=== PATIENT | male | born 1950 | race Caucasian/White ===

== ENCOUNTER 2019-10-28 18:32 | Observation (INO) | payer MEDICARE, SELFPAY ==
--- NOTE | ~2019-10-28 | CT_ITS ---
EXAMINATION: CT brain wo con DATE: 10/28/2019 19:10 INDICATION: Memory deficit TECHNIQUE: Computed tomography (CT) of the head was performed without intravenous contrast. The dose- length product was 681.00 mGy-cm. The mA was adjusted according to patient size. Iterative reconstruction technique was employed. COMPARISON: No prior studies for comparison. FINDINGS: No acute intracranial hemorrhage, infarction, mass or mass effect. No ventriculomegaly or m idline shift. Basilar cisterns are patent. Paranasal sinuses and mastoids are pneumatized. There are scattered mild periventricular and subcortical white matter changes, most likely related to small ves kaiser ischemic disease (microangiopathy). Midline sagittal images are unremarkable. IMPRESSION: 1. No acute intracranial abnormality. 2: Chronic age-related findings. Reviewed, dictated and finalized at location A.
--- NOTE | ~2019-10-28 | MR_ITS ---
EXAMINATION: MR brain/brain stem wo/w con DATE: 10/29/2019 13:02 INDICATION: Acute encephalopathy TECHNIQUE: Magnetic resonance imaging (MRI) of the brain and brainstem was performed without and with intravenous contrast. Sequences included sagittal and axial T1-weighted SE, axial diffusion-weighted FS EPI ASSET, axial T2*-weighted GRE, axial T2-weighted FLAIR Propeller, and axial T2-weighted Prope ller. Postcontrast axial and coronal T1-weighted SE was obtained. Apparent diffusion coefficient (ADC ) maps were created. COMPARISON: 09/03/2018 CONTRAST: Multihance, 17 cc FINDINGS: There are no areas of restricted diffusion to suggest acute infarction. There is no acute h emorrhage seen on the T2*, a hemosiderin sensitive sequence. The ventricles are normal in size. There are no extra-axial collections. There are scattered areas of nonspecific increased T2-weighted signa l intensity in the cerebral white matter. Flow voids are seen in the cerebral arteries on the T2-weig hted sequences consistent with their expected patency. Visualized orbits and soft tissues are unremar kable. There are no areas of abnormal enhancement on the post contrast images. IMPRESSION: 1. No acute intracranial abnormality. 2. Age related changes. Reviewed, dictated and finalized at location A.
[2019-10-28 18:43] VITALS: BP 187/99; PULSE 87; RESP 16; TEMP 37; O2SAT 98
--- NOTE | 2019-10-28 18:46 | ED.NEUROSD ---
HPI - Neuro Symptoms/Deficit General Chief Complaint: Neuro Symptoms/Deficit Stated Complaint: confusion Time Seen by Provider: 10/28/19 18:43 Source: patient and RN notes reviewed Mode of arrival: ambulatory Limitations: altered mental status History of Present Illness HPI Narrative: A 69 y/o male presents to the ED with increased confusion beginning 1 hour ago after he awoke from a nap. His states that they had sexual intercourse this afternoon and then took a nap, but that when the pt woke up he began to act confused. He reports associated anxiety and notes that he is on a 81mg Aspirin. He denies any TAYLOR, visual changes, blurred vision, slurred speech, focal weakness, numbness, CP, SOB, ABD pain, N/V/D, fevers, chills, sweats, dysuria, or urinary frequency. Onset (ago): hour(s) (1) Time: 17:45 Timing confirmed by: spouse Location: other (confusion) Context: other (awoke from a nap with) On Anticoagulants: Yes (81mg Aspirin) Associated symptoms: other (anxiety) Treatments Prior to Arrival: none Related Data Home Medications Medication Instructions Recorded Confirmed aspirin [Adult Low Dose Aspirin] 81 mg PO DAILY 10/28/19 10/29/19 atorvastatin 20 mg PO DAILY 10/28/19 10/29/19 flecainide 150 mg PO Q12H 10/28/19 10/29/19 metoprolol tartrate 50 mg PO Q12H 10/28/19 10/28/19 [id number] acid-lutein [Adult 1 tablet PO DAILY 10/28/19 10/29/19 Multivitamin (w-lutein)] Allergies Allergy/AdvReac Type Severity Reaction Status Date / Time ampicillin Allergy Intermediate BLEEDING Verified 10/28/19 18:46 AND DIARRHEA amoxicillin Allergy Unknown Unknown Verified 10/28/19 18:46 Penicillins Allergy Unknown Unknown Verified 10/28/19 18:46 Review of Systems Review of Systems: All systems reviewed & are unremarkable except as noted in HPI and below Constitutional: Constitutional: Denies chills, Denies fever(s) and Denies other (sweats) Eyes: Eyes: Denies blurry vision and Denies change in vision Cardiovascular: Cardiovascular: Denies chest pain Respiratory: Respiratory: Denies dyspnea Gastrointestinal: Gastrointestinal: Denies abdominal pain, Denies diarrhea, Denies nausea and Denies vomiting Genitourinary: Genitourinary: Denies dysuria and Denies urinary frequency Neurologic: Denies Abnormal speech present, Reports confusion, Denies headache(s), Denies focal weakness and Denies numbness Psychiatric: Psychiatric: Reports anxiety PMFSH Past Medical History Medical History A-fib Chronic back pain H/O: HTN (hypertension) HLD (hyperlipidemia) Surgical History Surgical History Hx of arthroscopic knee surgery Family History Family History (Updated 10/28/19 @ 23:50 by Aixa Mark RN) Mother Alzheimer disease Father Lymphoma, non-Hodgkin's Social History Social History Smoking status: Never smoker Alcohol intake: never Substance use: never Gender identity (if verbalized by the patient): Male Spiritual care concerns: No Comments PCP: Dr. Fox. Exam Const: General: cooperative, no acute distress and alert Nutritional Appearance: well nourished HENMT: Mouth: Yes lip normal and Yes moist mucous membranes Resp: Effort & Inspection: normal respiratory effort Auscultation: clear to auscultation bilaterally Cardio: Rate: regular rate Rhythm: regular rhythm GI: GI Palp: Yes Soft to palpation and No Tenderness to palpation present (GI) Auscultation: normal bowel sounds Skin: General skin exam: normal color Neuro: General: Normal light touch and pain sensation, no focal motor deficits, CN's II-XI intact bilaterally and confusion Cognition (Neuro): normal cognition Speech: normal speech Motor exam (neuro): 5/5 motor strength present throughout Sensory Exam: normal sensation Coordination: [id number] test
--- NOTE | 2019-10-28 18:55 | ECG_ITS ---
Measurements Intervals Wister Rate: 87 P: 80 CO: 188 QRS: 9 QRSD: 125 T: 24 QT: 372 QTc: 450 Interpretive Statements SINUS RHYTHM INTRAVENTRICULAR CONDUCTION DELAY POSSIBLE LEFT VENTRICULAR HYPERTROPHY BORDERLINE ECG Electronically Signed On 10-29-2019 7:53:36 CDT by Prieto Pang D.O.
[2019-10-28 19:06] VITALS: BP 187/99; PULSE 87; RESP 16; O2SAT 98
[2019-10-28 19:09] LABS: Basophils Absolute Auto 0.1 K/mm3 (0.0-0.1); Basophils Percent Auto 0.7 % (0.2-1.2); Eosinophils Absolute Auto 0.1 K/mm3 (0-0.3); Eosinophils Percent Auto 1.7 % (0-4.4); Hematocrit 45.5 % (42.0-52.0); Hemoglobin 15.6 g/dL (14.0-18.0); Immature Granulocyte Absolute 0.03 K/mm3 (0.00-0.031); Immature Granulocyte Percent A 0.4 % (0-0.5); Lymphocytes Absolute Auto 2.48 K/mm3 (0.9-3.2); Lymphocytes Percent Auto 34.8 % (18.3-44.2); Mean Corpuscular HGB Conc 34.3 g/dl (32-36); Mean Corpuscular Hemoglobin 30.1 pg (26-34); Mean Corpuscular Volume 87.8 fl (80-100); Mean Platelet Volume 10.4 fl (7.4-10.4); Monocytes Absolute Auto 0.9 K/mm3 (0.1-0.6); Monocytes Percent Auto 11.9 % (2.6-8.5); Neutrophils Absolute Auto 3.6 K/mm3 (1.3-6.7); Neutrophils Percent Auto 50.5 % (45.5-73.1); Platelet Count Result 226 k/mm3 (150-375); Red Blood Count 5.18 M/mm3 (4.6-6.20); Red Cell Distribution Width 12.7 % (11.5-14.5); White Blood Count 7.1 K/mm3 (4.5-10.0)
[2019-10-28 19:18] LABS: Partial Thromboplastin Time 26.8 SECONDS (22.3-36.8); Prothrombin Time 12.4 Seconds (11.1-14.7)
[2019-10-28 19:21] LABS: Alanine Aminotransferase 50 U/L (4-50); Albumin Level 4.5 g/dL (3.5-5.1); Alkaline Phosphatase 88 U/L (38-126); Aspartate Amino Transferase 43 U/L (17-59); Blood Urea Nitrogen 22 mg/dL (9-20); Calcium 9.2 mg/dL (8.4-10.2); Carbon Dioxide 24 mmol/L (22-30); Chloride 103 mmol/L (98-107); Estimated Glomerular Filt Rate > 60; Glucose 113 mg/dL (75-110); Potassium 4.2 mmol/L (3.4-5.0); Sodium 137 mmol/L (137-145)
[2019-10-28 19:36] LABS: Add Urine Microscopic? YES; Appearance Urine Clear (Clear); Bilirubin Urine Negative (Negative); Blood Urine 1+ (Negative); Color Urine Straw (Yellow); Glucose Urine UA Negative (Negative); Ketones Urine Negative (Negative); Leukocyte Esterase Ur Negative LEU/UL (Negative); Mucus Urine Rare /lpf; Nitrate Urine Negative (Negative); Protein Urine Negative (Negative); Specific Grav Ur 1.014 (1.001-1.035); Urobilinogen Urine Negative mg/dL (<2.0); WBC Urine 0-3 /hpf
--- NOTE | 2019-10-28 22:01 | PM.IMHP ---
H&P: HPI History of Present Illness Chief complaint: ALTERED MENTAL STATUS Narrative: This is a 69 year old male with known history of paroxysmal atrial fibrillation on Flecainaide, HTN, and hyperlipidemia who presented to the hospital with a complaint of acute altered mental status. The patient was last known to be at his baseline around 4 pm this afternoon. Apparently he had sexual intercourse with his in the afternoon and took a nap. Upon waking up he was very confused and began pacing around the room. His reported that the patient kept asking the same questions over and over again. He was brought to the hospital and evaluated. CT brain was unremarkable for any acute pathology. The patient denies any focal neurological symptoms. Apprently he did suffer a fall recently but did not have any head trauma. His family denies that the patient had any seizure like activity, passing out, head trauma, nausea, vomiting, slurred speech, blurry vision, double vision, loss of urine, tongue biting, numbness, tingling, facial droop or focal weakness. The patient has no previous history of strokes. His mother was known to have Alzheimer's disease in her 70s. On my encounter with the patient tonight he is clearly confused and quickly forgets what I am talking to him about. His intermediate memory seems intact. He denies any other symptoms at this time including fevers, chills, dysuria, hematuria, neck stiffness, headache, cough, chest pain, shortness of breath, palpitations, abdominal pain, diarrhea, rectal bleeding, LE swelling or pain. No other complaints. We have been asked to admit the patient to the hospital for further care. Review of Systems Review of Systems: All systems reviewed & are unremarkable except as noted in HPI and below PMFSH Past Medical History Medical History A-fib Chronic back pain H/O: HTN (hypertension) HLD (hyperlipidemia) Surgical History Surgical History Hx of arthroscopic knee surgery Family History Family History (Updated 10/28/19 @ 23:17 by Shiraz Goyal MD) Mother Alzheimer disease Social History Social History Smoking status: Never smoker Alcohol intake: current Meds Home Medications and Allergies Home Medications Medication Instructions Recorded Confirmed Type esomeprazole magnesium 40 mg 40 mg PO DAILY #90 cap 10/07/19 Rx capsule,delayed release aspirin [Adult Low Dose Aspirin] 81 mg PO DAILY 10/28/19 History atorvastatin 20 mg PO DAILY 10/28/19 History flecainide 150 mg PO Q12H 10/28/19 History metoprolol tartrate 50 mg PO Q12H 10/28/19 10/28/19 History [id number] acid-lutein [Adult tablet PO 10/28/19 History Multivitamin (w-lutein)] Allergies Allergy/AdvReac Type Severity Reaction Status Date / Time ampicillin Allergy Intermediate BLEEDING Verified 10/28/19 18:46 AND DIARRHEA amoxicillin Allergy Unknown Unknown Verified 10/28/19 18:46 Penicillins Allergy Unknown Unknown Verified 10/28/19 18:46 Vital Signs Vital Signs - 24 hr 10/28/19 18:43 10/28/19 19:06 Temperature 37.0 C Pulse Rate 87 87 Respiratory Rate 16 16 Blood Pressure 187/99 H 187/99 H Pulse Oximetry 98 98 Exam Const: General: cooperative, alert, awake, anxious and confusion Nutritional Appearance: well nourished Orientation/consciousness: patient oriented x3 HENMT: Head: normal to inspection General nose exam: Normal external nose present Face and sinus: normal facial exam Mouth: Yes Normal oral and palatal mucosa present and Yes oropharynx normal Eyes: Pupils: Equal, round and reactive pupils present EOM: EOMs intact bilaterally Neck: Neck: supple and no JVD Thyroid: thyroid normal Lymphatic: lymphadenopathy not noted Resp: Effort & Inspection: normal respiratory effort Auscultation: clear to
[2019-10-28 22:07] LABS: Glucose Point of Care 120 (65-105)
--- NOTE | 2019-10-28 23:19 | ADMGEN ---
This patient, Shiraz Parker, was admitted to Medical Room 245-. Patient/family oriented to hospital policies and general routines including ID bracelet, bed and alarms, visiting hours, pain management, procedures, bathroom and other care routines, personal items, smoking policy, room service/diet, and visiting hours. Valuables list has been completed. Information on how to activate the Rapid Response Team has been discussed. Patient/Family are encouraged to report perceived risks to care and to ask questions if they do not understand what they are told or what they should do.
[2019-10-28 23:29] VITALS: BMI 26.4
[2019-10-28 23:30] VITALS: BP 171/83; PULSE 94; RESP 20; TEMP 37.3; O2SAT 97
[2019-10-28 23:48] LABS: Ammonia < 9 umol/L (9-30)
[2019-10-28] MEDS: SODIUM CHLORIDE 0.9% IV 1,000 ML 100 ML IV CONT (23:52)
[2019-10-29] VITALS (14 sets, daily range): BP systolic 151–162; BP diastolic 75–104; PULSE 75–100; RESP 16–18; TEMP 36.2–37.2; O2SAT 96–97
[2019-10-29] MEDS: ACETAMINOPHEN 325 MG TABLET 650 MG PO ×3 (00:55→21:06)
[2019-10-29 01:47] LABS: Magnesium 1.9 mg/dL (1.6-2.3); Phosphorus 3.3 mg/dL (2.5-4.5)
[2019-10-29 02:14] LABS: Amphetamine Screen Urine Negative (Negative); Barbiturate Screen Urine Negative (Negative); Benzodiazepines Screen Urine Negative (Negative); Cannabinoid Screen Urine Negative (Negative); Cocaine Screen Urine Negative (Negative); Methadone Screen Urine Negative (Negative); Opiate Screen Urine Negative (Negative); Phencyclidine Screen Urine Negative (Negative)
[2019-10-29 02:57] LABS: Folic Acid 13.5 ng/mL (2.76->20)
[2019-10-29 05:43] LABS: Basophils Percent Auto 0.3 % (0.2-1.2); Eosinophils Absolute Auto 0.1 K/mm3 (0-0.3); Eosinophils Percent Auto 0.7 % (0-4.4); Hematocrit 42.8 % (42.0-52.0); Hemoglobin 14.7 g/dL (14.0-18.0); Immature Granulocyte Absolute 0.04 K/mm3 (0.00-0.031); Immature Granulocyte Percent A 0.5 % (0-0.5); Lymphocytes Absolute Auto 1.91 K/mm3 (0.9-3.2); Lymphocytes Percent Auto 22.1 % (18.3-44.2); Mean Corpuscular HGB Conc 34.3 g/dl (32-36); Mean Corpuscular Hemoglobin 30.3 pg (26-34); Mean Corpuscular Volume 88.2 fl (80-100); Mean Platelet Volume 10.2 fl (7.4-10.4); Monocytes Absolute Auto 0.9 K/mm3 (0.1-0.6); Monocytes Percent Auto 10.4 % (2.6-8.5); Neutrophils Absolute Auto 5.7 K/mm3 (1.3-6.7); Platelet Count Result 199 k/mm3 (150-375); Red Blood Count 4.85 M/mm3 (4.6-6.20); Red Cell Distribution Width 12.9 % (11.5-14.5); White Blood Count 8.6 K/mm3 (4.5-10.0)
[2019-10-29 05:44] LABS: Hemoglobin A1C 5.9 % (<5.7)
[2019-10-29 05:54] LABS: Blood Urea Nitrogen 16 mg/dL (9-20); Carbon Dioxide 25 mmol/L (22-30); Chloride 106 mmol/L (98-107); Cholesterol 175 mg/dL (0-200); Estimated CRCL calculation 81 ml/min; Estimated Glomerular Filt Rate > 60; Glucose 141 mg/dL (75-110); HDL Direct 35 mg/dL; Potassium 4.1 mmol/L (3.4-5.0); Sodium 136 mmol/L (137-145); Triglycerides 327 mg/dL (<150)
[2019-10-29 06:05] LABS: LDL Cholesterol Direct 90 mg/dL
[2019-10-29] MEDS: ASPIRIN 81 MG ENTERIC TABLET PO (08:26)
[2019-10-29] MEDS: SODIUM CHLORIDE 0.9% IV 1,000 ML 100 ML IV CONT (10:00)
[2019-10-29] MEDS: LORAZEPAM INJ 2 MG/ML VIAL 0.5 MG IV PUSH (11:57)
--- NOTE | 2019-10-29 15:21 | CONS_ITS ---
DATE OF CONSULTATION: 10/28/2019 HISTORY OF PRESENT ILLNESS: 69 years old right-handed male has been admitted to [facility] through the emergency room for the complaint of acute changes in the mental status. The patient reportedly last known to be at baseline around 4 p.m. in the afternoon, he went to sleep. Upon waking, he was very confused and began pacing around the room. His reported he kept asking the same question over and over again. He was brought to the hospital and evaluation was done. CT of the brain was unremarkable for any acute pathology. He gave no history of any other neurological deficit and gave no history of trauma. No history of seizure. He has no previous history of stroke. His mom used to be suffering from Alzheimer disease, but initial encounter, the patient was definitely confused and quickly forgot what he was told, though his long-term memory was intact. He has ongoing history of 1. Paroxysmal atrial fibrillation for which he is taking flecainide. 2. Hypertension. 3. Hyperlipidemia. 4. Chronic back pain. 5. History of arthroscopic knee surgery. As mentioned above, mom had the Alzheimer disease. The patient himself was never smoker and drinks alcohol occasionally. At the time of admission to the hospital, he was taking esomeprazole 40 mg daily, aspirin 81 mg daily, atorvastatin 20 mg daily, flecainide 150 mg q.12, metoprolol 50 mg q.12h, and multivitamin, folic acid, lutein 1 tablet daily. ALLERGIES: HE IS REPORTEDLY ALLERGIC TO AMPICILLIN AND PENICILLIN. PHYSICAL EXAMINATION: GENERAL AND VITAL SIGNS: Evaluation up until now revealed him to be afebrile with respiration of 15 per minute, blood pressure 187/99, and pulse ox of 98%. HEAD: Normocephalic with no cranial bruit. EAR, NOSE, THROAT: Normal. NECK: Supple with no cervical bruit. No thyromegaly. No lymphadenopathy. HEART: Regular. LUNGS: Clear. ABDOMEN: Soft. NEUROLOGICAL: He is awake, alert, oriented x3. Speech not dysphasic, not dysarthric, not dysphonic. Pupils round, regular. Harris of vision full. Extraocular movements full. Face symmetrical. Tongue midline. Motor examination revealed him to have normal strength and tone. Reflexes symmetrical. Plantars downgoing. There is no evidence of sensory or cerebellar deficit. LABORATORY DATA: Evaluation up until now revealed him to have CBC with WBC 7.1, hemoglobin 15.6, platelet count 226. Normal basic metabolic panel. AST 43, ALT 50, alkaline phos 88, albumin 4.5 with total bilirubin of 1.0. UA negative. CT scan of the neck, head negative, except the chronic age-related finding. After thorough discussion made with him further concerns were raised about the possibility of 1. Early dementia. 2. Anxiety with very subtle depression. 3. Possibility of the stroke and TIA. All the pros and cons were discussed with him, with his , as well as the daughter who is the nurse. At this stage, I would like to start him on citalopram 10 mg daily, in addition we will wait for the MRI to make sure that he did not have any subcortical stroke and we are dealing only with the TIA versus the early Alzheimer or anxiety stress. All the pros and cons have been discussed. MATTHEW DANIELS M.D. PACKAGE DYE STAND LOADER PACKAGE DYE STAND LOADER D Daphnie MT: Ton
[2019-10-29] MEDS: CITALOPRAM HYDROBROMIDE 10 MG TABLET PO (15:45)
--- NOTE | 2019-10-29 17:28 | PM.IMPN ---
Progress Note: A&P Assessment and Plan (1) Acute alteration in mental status: Code(s): R41.82 - Altered mental status, unspecified Status: Acute Assessment and Plan: Appears may be consistent with transient global amnesia precipitated by significant stress and anxiety vs. TIA. Early dementia is also possible. Appreciate neurology consultation. Electrolytes, TSH, ammonia, vitamin B12 and folate levels are all within normal limits. Urine drug screen negative. Urinalysis is grossly unremarkable. EKG and telemetry in normal sinus rhythm. CT brain with no acute intracranial abnormality. MRI brain was obtained today, waiting on final report to rule out CVA. Echocardiogram noted below, no interatrial shunting suspected. Continue home statin therapy and ASA. (2) Paroxysmal atrial fibrillation: Code(s): I48.0 - Paroxysmal atrial fibrillation Status: Chronic Assessment and Plan: Currently in normal sinus rhythm. Continue home flecainide and metoprolol. He follows with Dr. Dukes at [facility] as well as an academic program specialist. (3) Hypertension: Qualifiers: Hypertension type: essential hypertension Qualified Code(s): I10 - Essential (primary) hypertension Code(s): I10 - Essential (primary) hypertension Status: Chronic Assessment and Plan: BPs elevated, patient admits to significant white coat anxiety and many other stressors at home. Allowed for permissive hypertension initially. PRN hydralazine available as needed in addition to his home antihypertensive regimen. (4) HLD (hyperlipidemia): Qualifiers: Hyperlipidemia type: unspecified Qualified Code(s): E78.5 - Hyperlipidemia, unspecified Code(s): E78.5 - Hyperlipidemia, unspecified Status: Chronic Assessment and Plan: Continue home statin therapy. Triglycerides are elevated. Follow-up with PCP. (5) GERD (gastroesophageal reflux disease): Qualifiers: Esophagitis presence: without esophagitis Qualified Code(s): K21.9 - Gastro-esophageal reflux disease without esophagitis Code(s): K21.9 - Gastro-esophageal reflux disease without esophagitis Status: Chronic Assessment and Plan: Continue PPI therapy. (6) Anxiety: Code(s): F41.9 - Anxiety disorder, unspecified Status: Chronic Assessment and Plan: Patient exhibits significant anxiety. He admits he is very stressed about things going on at home and also admits he is very worried about his health. Dr Bishop started Celexa. Subjective Date/time seen: 10/29/19 1130 Interval history: Mr. Parker is a 69yo M admitted for evaluation of altered mental status. He is quite anxious and has significant stress in his home life. He reports feeling better this morning than when he came in. He is very concerned for his health and all of his test results were explained to him in detail which helped ease him. He denies any chest pain, shortness of breath, dizziness or calf tenderness. He has tolerated some oral intake without nausea or vomiting. Review of Systems Review of Systems: Narrative: Twelve systems were reviewed with pertinent positives and negatives as per HPI. Exam Narrative: Exam Narrative: General: Male resting supine in bed in no acute distress. Anxious. HEENT: Normocephalic, EOMI, oral mucosa moist. Cardiovascular: Rate and rhythm are regular. Telemetry review shows normal sinus rhythm rate 78 at time of my exam. Respiratory: Lungs clear to auscultation all mendieta. Non-labored breathing. Abdomen: Soft, non-tender, non-distended, bowel sounds present. Extremities: Peripheral pulses intact. No edema, erythema, or pain to palpation. Neuro: No focal neurological deficits. Timing Machine Operator strength, upper and low
[2019-10-29] MEDS: FLECAINIDE ACETATE 100 MG TABLET PO (20:40)
[2019-10-29] MEDS: FLECAINIDE ACETATE 50 MG TABLET PO (20:42)
[2019-10-29] MEDS: METOPROLOL TARTRATE 50 MG TAB PO (20:43)
--- NOTE | 2019-10-29 22:17 | ECHO_ITS ---
Patient Info Name: Shiraz Parker Age: 69 years : 1950 Gender: Male Ht: 72 in Wt: 195 lbs BSA: 2.13 m2 HR: 78 bpm BP: 159 / 85 mmHg Technical Quality: Good Exam Date: 10/29/2019 7:00 AM Exam Location: [facility] Pulmonary Exam Room: [facility] Patient Status: Inpatient Admit Date: 10/28/2019 Staff Ordering Physician: Shiraz Goyal MD Hearing Aid Repairer: Mae Mariscal RDCS Attending Provider: Shiraz Goyal MD Referring Physician: Jyotsna BENÍTEZ; Exam Type: CA echo doppler w bubble study Study Info Indications - ACUTE CVA Complete two-dimensional, color flow and Doppler transthoracic echocardiogram is performed with agitated saline. Contrast/Agitated Saline Contrast/Ag. Saline: Agitated Saline Amount: 20.00 ml Existing IV Access: Yes IV Access Condition: patent with no signs of infiltration Summary 1. Left ventricular chamber size, wall thickness, systolic function and diastolic function are normal with no regional wall motion abnormalities with an estimated ejection fraction of 65-70%. 2. Left atrial chamber dimension is mildly enlarged. 3. Interatrial septum not well visualized but appears mobile; an atrial septal aneurysm can not be excluded. However agitated saline imaging during normal respiration and Valsalva does not show any intracardiac shunt. 4. Normal sinus rhythm. Left Ventricle Left ventricular chamber dimension is normal. Left ventricular systolic function is normal, estimated at 60-65%. There is no increased left ventricular wall thickness. Left ventricular septal wall motion is normal. The left ventricular diastolic function is normal. Left ventricular chamber size, wall thickness, systolic function and diastolic function are normal with no regional wall motion abnormalities with an estimated ejection fraction of 65-70%. Right Ventricle Right ventricular chamber dimension is normal. Right ventricular systolic function is normal. Left Atria Left atrial chamber dimension is mildly enlarged. Right Atria Right atrial chamber dimension is normal. Atrial Septum Interatrial septum not well visualized but appears mobile; an atrial septal aneurysm can not be excluded. However agitated saline imaging during normal respiration and Valsalva does not show any intracardiac shunt. Aortic Valve The aortic valve is trileaflet. There is no aortic valve sclerosis. There is no aortic valve stenosis. There is no aortic valve regurgitation. Pulmonic Valve The pulmonic valve is normal. There is no pulmonic valve stenosis. There is trace pulmonic regurgitation. Mitral Valve The mitral valve has normal leaflets. There is no mitral valve stenosis. There is trace mitral valve regurgitation. Tricuspid Valve The tricuspid valve leaflets are normal. There is no significant tricuspid valve stenosis. There is trace tricuspid valve regurgitation. No pulmonary hypertension, estimated pulmonary arterial systolic pressure is 29 mmHg. Pericardium/Pleural The pericardium appears normal. There is no pericardial effusion. Inferior Vena Cava Not well visualized inferior vena cava with >50% collapse upon inspiration consistent with Empty right atrial pressure, 10 mmHg. Aorta The aortic root size at the sinus of Valsalva is normal. The prox ascending aorta size is normal. Left Ventricular Outflow Tract Name
[2019-10-30] VITALS (9 sets, daily range): BP systolic 141–176; BP diastolic 77–89; PULSE 62–73; RESP 18–20; TEMP 36.1–36.5; O2SAT 95–98
[2019-10-30] MEDS: ACETAMINOPHEN 325 MG TABLET 650 MG PO (05:38)
[2019-10-30] MEDS: FLECAINIDE ACETATE 50 MG TABLET PO (08:01)
[2019-10-30] MEDS: PANTOPRAZOLE 40 MG TABLET PO (08:03)
[2019-10-30] MEDS: ATORVASTATIN 20 MG TABLET PO (08:03)
[2019-10-30] MEDS: METOPROLOL TARTRATE 50 MG TAB PO (08:03)
[2019-10-30] MEDS: FLECAINIDE ACETATE 100 MG TABLET PO (08:04)
[2019-10-30] MEDS: ASPIRIN 81 MG ENTERIC TABLET PO (09:21)
[2019-10-30] MEDS: CITALOPRAM HYDROBROMIDE 10 MG TABLET PO (09:21)
--- NOTE | 2019-10-30 16:44 | PM.DS ---
DS: Diagnosis Admitting Diagnosis Admitting Diagnosis: Encephalopathy, unspecified Discharge Diagnosis (1) Acute alteration in mental status: Code(s): R41.82 - Altered mental status, unspecified Status: Acute Assessment and Plan: Date of Service 10/30/19 Mr. Parker is a 69yo M with history of hypertension, paroxysmal atrial fibrillation, and anxiety who presented to the ED for evaluation after an episode of confusion. His family present reported he was pacing around, not acting himself, and asking the same questions over and over again. After a few hours, he became less confused. A thorough workup was unremarkable and detailed below. Notably, MRI brain showed no acute stroke, mass, bleed or other intracranial findings to explain his symptoms. Mr. Parker admitted to significant stress and anxiety at home surrounding buying a new home and moving out of a home he had lived in for 35 years. He also reported white coat anxiety, and even gets anxious when he has to take his blood pressure at home. He is notably anxious on exam, specifically regarding his health. It is ultimately felt that his symptoms were consistent with transient global amnesia precipitated by significant stress and anxiety vs. TIA. 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 He remained in normal sinus rhythm on telemetry during this admission, maintained on his home flecainide and metoprolol. He was encouraged to establish care with a psychiatrist or talk therapist/psychologist and agreed to discuss this with his PCP. He was evaluated by Neurology, Dr Bishop, who started Celexa. He was hemodynamically stable for discharge 10/30/19 and was back at his cognitive baseline. Appears may be consistent with transient global amnesia precipitated by significant stress and anxiety vs. TIA. Early dementia is also possible. Appreciate neurology consultation (Dr Bishop). Electrolytes, TSH, ammonia, vitamin B12 and folate levels are all within normal limits. Urine drug screen negative. Urinalysis is grossly unremarkable. EKG and telemetry in normal sinus rhythm. CT brain and MRI brain with no acute intracranial abnormality. Echocardiogram noted below, no interatrial shunting suspected. Continue home statin therapy and ASA. (2) Paroxysmal atrial fibrillation: Code(s): I48.0 - Paroxysmal atrial fibrillation Status: Chronic Assessment and Plan: Currently in normal sinus rhythm. Continue home flecainide and metoprolol. He follows with Dr. Dukes at [facility] as well as an immigration law specialist. (3) Hypertension: Qualifiers: Hypertension type: essential hypertension Qualified Code(s): I10 - Essential (primary) hypertension Code(s): I10 - Essential (primary) hypertension Status: Chronic Assessment and Plan: BPs elevated, patient admits to significant white coat anxiety and many other stressors at home. Allowed for permissive hypertension initially. (4) HLD (hyperlipidemia): Qualifiers: Hyperlipidemia type: unspecified Qualified Code(s): E78.5 - Hyperlipidemia, unspecified Code(s): E78.5 - Hyperlipidemia, unspecified Status: Chronic Assessment and Plan: Continue home statin therapy. Triglycerides are elevated. Follow-up with PCP. (5) GERD (gastroesophageal reflux disease): Qualifiers: Esophagitis presence: without esophagitis Qualified Code(s): K21.9 - Gastro-esophageal reflux disease without esophagitis Code(s): K21.9 - Gastro-esophageal reflux disease without esophagitis Status: Chronic Assessment and Plan: Continue PPI therapy. (6) Anxiety: Code(s): F41.9 - A
== END 2019-10-30 14:20 | disposition home or self-care (01) ==
LOC: ANHED 19:08 → ANH2MED 21:10
PROVIDERS: Admitting Provider Family Medicine; Emergency Provider Emergency Medicine; PCP Internal Medicine; Visit Provider Internal Medicine
DX: R41.82 Altered mental status, unspecified (principal); I48.0 Paroxysmal atrial fibrillation; I10 Essential (primary) hypertension; E78.5 Hyperlipidemia, unspecified; K21.9 Gastro-esophageal reflux disease without esophagitis; F41.8 Other specified anxiety disorders; G89.29 Other chronic pain; M54.9 Dorsalgia, unspecified; Z79.01 Long term (current) use of anticoagulants; Z79.82 Long term (current) use of aspirin; Z79.899 Other long term (current) drug therapy; Z82.0 Family history of epilepsy and other diseases of the nervous system
CPT/HCPCS: 36415; 70450; 70553; 80048; 80053; 80061; 80307; 81001; 82140; 82607; 82746; 82948; 83036; 83735; 84100; 84443; 85025; 85610; 85730; 93005; 93306; 96361; 96374; 96375; 99285; A9270; A9577; G0378; J2060; J7030

== ENCOUNTER 2021-04-01 03:05 | Day surgery (SDC) | payer MEDICARE, SELFPAY ==
[2021-03-21 10:12] VITALS: BMI 27.6
--- NOTE | 2021-04-01 06:44 | PM.HPGS ---
History of Present Illness History of Present Illness Consent: Risks, benefits, and alternatives have been discussed and questions answered. Patient agrees to proceed with procedure. Chief complaint: hx of colon polyps Narrative: Shiraz Parker is a 70 year old male Here for colon cancer screening. He had multiple polyps removed about 3 years ago. Review of Systems Review of Systems: All systems reviewed & are unremarkable except as noted in HPI and below PMFSH Past Medical History Medical History A-fib Anxiety Chronic back pain HLD (hyperlipidemia) Hypertension Surgical History Surgical History Hx of arthroscopic knee surgery Family History Family History Mother Alzheimer disease Father Lymphoma, non-Hodgkin's Social History Social History Smoking status: Never smoker Alcohol intake: never Substance use: never Substance use type: does not use Living arrangements: with family Gender identity (if verbalized by the patient): Male Spiritual care concerns: No Meds Home Medications and Allergies Home Medications Medication Instructions Recorded Confirmed Type aspirin [Adult Low Dose Aspirin] 81 mg PO DAILY 10/28/19 04/01/21 History flecainide 150 mg PO Q12H 10/28/19 04/01/21 History metoprolol tartrate 50 mg PO Q12H 10/28/19 04/01/21 History [id number] acid-lutein [Adult 1 tablet PO DAILY 10/28/19 04/01/21 History Multivitamin (w-lutein)] coenzyme Q10 100 mg capsule 100 mg PO DAILY 02/02/20 04/01/21 History buspirone 7.5 mg tablet See Rx Instructions .ROUTE 01/01/21 04/01/21 Rx .COMPLEX #180 tablet atorvastatin 10 mg tablet 10 mg PO QHS #90 tablet 02/12/21 04/01/21 Rx Allergies Allergy/AdvReac Type Severity Reaction Status Date / Time ampicillin Allergy Intermediate BLEEDING Verified 04/01/21 07:45 AND DIARRHEA amoxicillin Allergy Unknown Unknown Verified 04/01/21 07:45 Penicillins Allergy Unknown Unknown Verified 04/01/21 07:45 Exam Resp: Auscultation: clear to auscultation bilaterally Cardio: Rate: regular rate Rhythm: regular rhythm GI: GI Palp: Yes Soft to palpation and No Tenderness to palpation present (GI) Assessment and Plan Assessment and plan (1) Colon cancer screening: Code(s): Z12.11 - Encounter for screening for malignant neoplasm of colon Status: Acute Assessment and Plan: Colonoscopy with possible biopsy or polypectomy or cautery or injection of substances.
[2021-04-01 07:30] VITALS: BP 139/88; PULSE 74; RESP 20; TEMP 36.6; O2SAT 97
[2021-04-01 07:47] VITALS: BMI 27.0
--- NOTE | 2021-04-01 07:54 | WPDANESEPPF ---
Anes - Initial Pre Proc Eval Procedure: Operation Date: 04/01/21 08:30 Proposed Procedures p Screening Colonoscopy - Cornel Vieira MD Date/Time: 04/01/21 07:54 Surgeon: Cornel Vieira MD Pre Op Diagnosis: hx of colon polyps Patient Data Age: 70 Gender: M Height: 1.8 m Weight: 87.9 kg Allergies Allergy/AdvReac Type Severity Reaction Status Date / Time ampicillin Allergy Intermediate BLEEDING Verified 04/01/21 07:45 AND DIARRHEA amoxicillin Allergy Unknown Unknown Verified 04/01/21 07:45 Penicillins Allergy Unknown Unknown Verified 04/01/21 07:45 Home Medications Medication Instructions Recorded Confirmed Type aspirin [Adult Low Dose Aspirin] 81 mg PO DAILY 10/28/19 04/01/21 History flecainide 150 mg PO Q12H 10/28/19 04/01/21 History metoprolol tartrate 50 mg PO Q12H 10/28/19 04/01/21 History [id number] acid-lutein [Adult 1 tablet PO DAILY 10/28/19 04/01/21 History Multivitamin (w-lutein)] coenzyme Q10 100 mg capsule 100 mg PO DAILY 02/02/20 04/01/21 History buspirone 7.5 mg tablet See Rx Instructions .ROUTE 01/01/21 04/01/21 Rx .COMPLEX #180 tablet atorvastatin 10 mg tablet 10 mg PO QHS #90 tablet 02/12/21 04/01/21 Rx Patient hx anesthesia problems: none Family hx anesthesia problems: none PMFSH Past Medical History Medical History A-fib Anxiety Chronic back pain HLD (hyperlipidemia) Hypertension Surgical History Surgical History Hx of arthroscopic knee surgery Family History Family History Mother Alzheimer disease Father Lymphoma, non-Hodgkin's Social History Social History Smoking status: Never smoker Alcohol intake: never Substance use: never Substance use type: does not use Living arrangements: with family Gender identity (if verbalized by the patient): Male Spiritual care concerns: No Anes - Eval Final PreProcedure Day of Procedure 04/01/21 07:54 Patient weight: overweight Heart: regular rate and rhythm Lungs: clear to auscultation Airway: Mallampati scale class II Neurological: alert and oriented Last oral intake: >/= 8 hours ASA classification: II Emergent: no Anesthetic plan: proceed Anesthesia type and monitoring: general GIVS Informed Consent: The patient's anesthetic plan and its attendant risks and benefits were discussed with the patient/family/POA. Questions were solicited and answers provided to the satisfaction of the patient/family/POA.
[2021-04-01] MEDS: LACTATED RINGERS 1,000 ML 150 ML IV CONT (08:05)
[2021-04-01 09:03] VITALS: BP 105/69; PULSE 64; RESP 20; O2SAT 95
[2021-04-01 09:13] VITALS: BP 120/76; PULSE 65; RESP 18; O2SAT 97
[2021-04-01 09:23] VITALS: BP 115/77; PULSE 65; RESP 20; O2SAT 98
== END 2021-04-01 09:40 | disposition home or self-care (01) ==
PROVIDERS: PCP Internal Medicine; Visit Provider Internal Medicine Gastroenterology
PROC: 0DJD8ZZ Inspection of Lower Intestinal Tract, Via Natural or Artificial Opening Endoscopic (ICD-10-PCS; CPT 45378; principal; 2021-04-01 08:30)
DX: Z12.11 Encounter for screening for malignant neoplasm of colon (principal); D12.2 Benign neoplasm of ascending colon; I48.20 Chronic atrial fibrillation, unspecified; I10 Essential (primary) hypertension; E78.5 Hyperlipidemia, unspecified; M54.9 Dorsalgia, unspecified; G89.29 Other chronic pain; F41.9 Anxiety disorder, unspecified; Z86.010 Personal history of colon polyps
CPT/HCPCS: 45380; 88305; J2704; J7120

== ENCOUNTER 2021-04-05 19:37 | Emergency (ER) | payer MEDICARE, SELFPAY ==
--- NOTE | ~2021-04-05 | XR_ITS ---
XR shoulder LT min 2V DATE: 04/05/2021 20:10 INDICATION: Fall today. Pain from left shoulder the left elbow TECHNIQUE: 4 views COMPARISON: None FINDINGS: There is joint space narrowing and spurring at the left acromioclavicular joint. No fracture or dislocation, periosteal reaction or bone destruction or abnormal soft tissue calcifica tion. IMPRESSION: Degenerative change at the left acromioclavicular joint Reviewed, dictated and finalized at location A.
--- NOTE | ~2021-04-05 | XR_ITS ---
XR hip LT 2V w AP pelvis DATE: 04/05/2021 20:09 INDICATION: Fall today. Lateral left pelvic and hip pain TECHNIQUE: AP pelvis. AP, lateral views of left hip COMPARISON: None FINDINGS: There is mild left hip osteoarthritis. There is degenerative disc disease of the lumbar spine. There is a transitional lumbosacral vertebra with sacralization on the left, lumbarization on the right. The pubic symphysis and sacroiliac joints are intact. No fracture, dislocation, avascular necrosis or bone destruction of the left hip. IMPRESSION: No pelvic or left hip fracture Transitional lumbosacral vertebra Multilevel degenerative disease of the lumbar spine Left hip mild osteoarthritis Reviewed, dictated and finalized at location A.
[2021-04-05 19:40] VITALS: BP 174/87; PULSE 77; RESP 16; TEMP 36.7; O2SAT 100
[2021-04-05 23:08] VITALS: BP 167/95; PULSE 90; RESP 18; O2SAT 98
--- NOTE | 2021-04-05 23:10 | PC.NURSE ---
pt reports he tripped and fell on shovels earlier today, landing on left forearm and left him. ED MD in room. pt has good ROM. no visible injuries/deformities.
--- NOTE | 2021-04-05 23:22 | ED.FALL ---
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 Over some troubles in his garage and landed on his left side this afternoon Doing so he banged his left hip and jammed his left arm up into his left shoulder He has been able to walk without issue but he does have discomfort and a catching feeling when he tries to abduct the shoulder No numbness or weakness Did not hit his head or lose consciousness or have any symptoms before the fall Related Data Home Medications Medication Instructions Recorded Confirmed aspirin [Adult Low Dose Aspirin] 81 mg PO DAILY 10/28/19 04/01/21 flecainide 150 mg PO Q12H 10/28/19 04/01/21 metoprolol tartrate 50 mg PO Q12H 10/28/19 04/01/21 [id number] acid-lutein [Adult 1 tablet PO DAILY 10/28/19 04/01/21 Multivitamin (w-lutein)] coenzyme Q10 100 mg capsule 100 mg PO DAILY 02/02/20 04/01/21 Allergies Allergy/AdvReac Type Severity Reaction Status Date / Time ampicillin Allergy Intermediate BLEEDING Verified 04/05/21 23:12 AND DIARRHEA amoxicillin Allergy Unknown Unknown Verified 04/05/21 23:12 Penicillins Allergy Unknown Unknown Verified 04/05/21 23:12 Review of Systems Review of Systems: All systems reviewed & are unremarkable except as noted in HPI and below Constitutional: Constitutional: Denies headache(s) ENT: Denies headache(s) Cardiovascular: Cardiovascular: Denies chest pain, Denies rapid heart rate and Denies dyspnea Genitourinary: Genitourinary: Denies dysuria and Denies urinary frequency Musculoskeletal: Musculoskeletal: Reports myalgias, Denies deformity, Reports arthralgias, Denies joint swelling and Denies numbness Integumentary/Breasts: Skin/Breast: Denies rash and Denies wounds Neurologic: Denies headache(s), Denies focal weakness and Denies numbness Allergic/Immunologic: Allergic/Immunologic: Reports no additional allergic/immunologic complaints PMFSH Past Medical History Medical History A-fib Anxiety Chronic back pain HLD (hyperlipidemia) Hypertension Surgical History Surgical History Hx of arthroscopic knee surgery Family History Family History Mother Alzheimer disease Father Lymphoma, non-Hodgkin's Social History Social History Smoking status: Never smoker Alcohol intake: never Substance use: never Substance use type: does not use Gender identity (if verbalized by the patient): Male Spiritual care concerns: No Exam Const: General: no acute distress and alert Orientation/consciousness: patient oriented x3 HENMT: Head: no contusions, no hematomas and no lacerations Resp: Effort & Inspection: normal respiratory effort and not labored Neuro: General: patient oriented x3 and moves all extremities Speech: normal speech Gait exam (Neuro): Normal gait present Extrem: Other: Left hip has full range of motion, no shortening or deformity, no pain over the trochanter Pelvis is nontender Left AC is nontender Left shoulder has some discomfort between 60 and 90 degrees of abduction but is hard to find any subacromial area of tenderness Course Course Emergency Course: Discussed with patient that there is some suspicion that he could have harmed his rotator cuff and that after a nominal period of time he should have it rechecked by orthopedist if he still having any pain or functional issues Vital Signs Vital signs: Vital Signs Temperature 36.7 C 04/05/21 19:40 Pulse Rate 77 04/05/21 19:40 Respiratory Rate 16
[2021-04-05 23:40] VITALS: BP 167/95; PULSE 67; RESP 20; O2SAT 95
--- NOTE | 2021-04-05 23:51 | PC.NURSE ---
pt able to ambulate with slow, steady, unassisted gait to wr.
== END 2021-04-05 23:53 | disposition home or self-care (01) ==
PROVIDERS: Emergency Provider Emergency Medicine; PCP Internal Medicine
DX: S46.012A Strain of muscle(s) and tendon(s) of the rotator cuff of left shoulder, initial encounter (principal); I48.91 Unspecified atrial fibrillation; F41.9 Anxiety disorder, unspecified; G89.29 Other chronic pain; E78.5 Hyperlipidemia, unspecified; I10 Essential (primary) hypertension; W18.39XA Other fall on same level, initial encounter; Y92.015 Private garage of single-family (private) house as the place of occurrence of the external cause
CPT/HCPCS: 73030; 73502; 99284

== ENCOUNTER 2021-11-13 10:36 | Outpatient (CLI) | payer MEDICARE, SELFPAY ==
--- NOTE | ~2021-11-13 | XR_ITS ---
EXAMINATION: XR abdomen/kub 1V DATE: 11/13/2021 11:00 INDICATION: Hematuria. TECHNIQUE: A supine view of the abdomen on 2 radiographs was obtained. COMPARISON: CT abdomen and pelvis 11/13/2021 FINDINGS: There are no dilated loops of bowel. There is a 5 mm stone in right kidney lower pole. IMPRESSION: 1. 5 mm stone in right kidney. Reviewed, dictated and finalized at location A.
--- NOTE | ~2021-11-13 | CT_ITS ---
EXAMINATION: CT abdomen pelvis wo/w con DATE: 11/13/2021 11:27 INDICATION: Hematuria. TECHNIQUE: Computed tomography (CT) of the abdomen and pelvis was performed without and with intraven ous contrast using a total of 130 mL Omnipaque-350 intravenous contrast with a double-bolus technique for simultaneous opacification of the renal parenchyma and renal collecting system. Automated exposu re control and iterative reconstruction technique were employed. The dose-length product was 1462.28 mGy-cm. COMPARISON: None FINDINGS: The visualized portions of the lung bases demonstrate minimal atelectasis. No pleural effus ion. The heart size is normal. There are coronary artery calcifications. No pericardial effusion. The liver, gallbladder, spleen, pancreas, and right adrenal gland are normal. There is a 1.5 cm mass in left adrenal gland measuring soft tissue attenuation. There is a 5 mm stone in right kidney. There ar e cysts in the kidneys measuring up to 10 mm on the right. The ureters are well opacified and are nor mal. The prostate is moderately enlarged. The bladder is not well distended. There is diffuse bladder wall thickening, likely secondary to chronic obstruction. There is a left inguinal hernia containing fat. There is diverticulosis of the colon without evidence of diverticulitis. There are no dilated l oops of bowel. The appendix is not visualized. There are no pathologically enlarged lymph nodes. Ther e is no free intraperitoneal fluid. There is moderate thoracolumbar spondylosis. IMPRESSION: 1. 5 mm nonobstructing right kidney stone. 2. Diffuse bladder wall thickening, likely secondary to chronic outlet obstruction from the moderatel y enlarged prostate. 3. 1.5 cm left adrenal mass. In the absence of known malignancy, this finding is likely an adenoma. Reviewed, dictated and finalized at location A. IMPRESSION: 1. 5 mm nonobstructing right kidney stone. 2. Diffuse bladder wall thickening, likely secondary to chronic outlet obstruct ion from the moderately enlarged prostate. 3. 1.5 cm left adrenal mass. In the absence of known malignancy, this finding i s likely an adenoma.
[2021-11-13 11:10] LABS: Estimated Glomerular Filt Rate > 60
== END 2021-11-13 10:37 | disposition home or self-care (01) ==
PROVIDERS: PCP Internal Medicine; Visit Provider Urology
DX: R31.9 Hematuria, unspecified (principal); N20.0 Calculus of kidney; D35.02 Benign neoplasm of left adrenal gland
CPT/HCPCS: 74018; 74178; Q9967

== ENCOUNTER → 2022-05-27 09:57 | Outpatient (CLI) | payer MEDICARE, SELFPAY ==
--- NOTE | ~2022-05-27 | XR_ITS ---
EXAMINATION: XR abdomen/kub 1V INDICATION: Hematuria TECHNIQUE: Supine views of the abdomen were obtained on 2 radiographs. COMPARISON: 11/13/2021 FINDINGS: There is a stable 5 mm stone of the right kidney lower pole. There is a questionable 3 mm s tone of the left kidney. The visualized lung bases are clear. There is mild osteoarthritis of the hip s. IMPRESSION: 1. Stable right nephrolithiasis and possible left nephrolithiasis. Reviewed, dictated and finalized at location A.
== END ==
PROVIDERS: PCP Internal Medicine; Visit Provider Urology
DX: R31.9 Hematuria, unspecified (principal); M16.0 Bilateral primary osteoarthritis of hip
CPT/HCPCS: 74018

== ENCOUNTER → 2023-02-23 14:34 | Outpatient (CLI) | payer MEDICARE, SELFPAY ==
--- NOTE | ~2023-02-23 | XR_ITS ---
EXAMINATION: XR hip LT min 2V DATE: 02/23/2023 14:53 INDICATION: Left hip pain. TECHNIQUE: 2 views of left hip were obtained. COMPARISON: Left hip radiographs 04/05/2021 FINDINGS: Bone alignment is normal. No fracture. There is mild left hip osteoarthritis. There is mode rate lower lumbar spondylosis. IMPRESSION: 1. Mild left hip osteoarthritis. Reviewed, dictated and finalized at location E.
== END ==
PROVIDERS: PCP Internal Medicine; Visit Provider Clinical Nurse Specialist
DX: M16.12 Unilateral primary osteoarthritis, left hip (principal)
CPT/HCPCS: 73502

== ENCOUNTER 2024-05-11 14:30 | Outpatient (RCR) | payer MEDICARE, SELFPAY | END 2024-06-15 14:10 | disposition home or self-care (01) | LOC: ANHDMC 14:30 | PROVIDERS: PCP Internal Medicine; Visit Provider Clinical Nurse Specialist | DX: E11.9 Type 2 diabetes mellitus without complications (principal); Z71.89 Other specified counseling | CPT/HCPCS: G0108; G0109 ==

== ENCOUNTER 2024-06-13 16:50 | Emergency (ER) | payer MEDICARE, SELFPAY ==
[2024-06-13 17:07] VITALS: PULSE 62; RESP 16; TEMP 36.4; O2SAT 97
--- NOTE | 2024-06-13 17:26 | ED.SKABFB ---
HPI - Skin/Abscess/Foreign Bdy General Chief complaint: Skin/Abscess/Foreign Body Stated complaint: Left Hand Burn Time Seen by Provider: 06/13/24 17:26 Source: patient Mode of arrival: ambulatory Limitations: no limitations History of Present Illness HPI narrative: 73-year-old male presents with burn wound to left hand. 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 Tetanus is up-to-date. Apply ice to treat pain. All systems reviewed and negative except as noted above. Related Data Home Medications Medication Instructions Recorded Confirmed aspirin 81 mg tablet,delayed 81 mg PO DAILY 10/28/19 03/09/24 release (Adult Low Dose Aspirin) flecainide 150 mg tablet 150 mg PO Q12H 10/28/19 03/09/24 metoprolol tartrate 50 mg tablet 50 mg PO Q12H 10/28/19 03/09/24 multivit with min-folic 1 tablet PO DAILY 10/28/19 03/09/24 acid-lutein 200 mcg-137.5 mcg chewable tablet (Adult Multivitamin (w-lutein)) coenzyme Q10 100 mg capsule (Co 100 mg PO DAILY 02/02/20 03/09/24 Q-10) Allergies Allergy/AdvReac Type Severity Reaction Status Date / Time ampicillin Allergy Intermediate BLEEDING Verified 03/09/24 13:52 AND DIARRHEA amoxicillin Allergy Unknown Unknown Verified 03/09/24 13:52 Penicillins Allergy Unknown Unknown Verified 03/09/24 13:52 Review of Systems Review of Systems: CONSTITUTIONAL: Denies fever, chills, or sweats. EYES: Denies visual changes, redness, or discharge. ENT: Denies rhinorrhea, congestion, sore throat, or otalgia. CARDIOVASCULAR: Denies chest pain, palpitations, or edema. RESPIRATORY: Denies cough or dyspnea. GASTROINTESTINAL: Denies abdominal pain, nausea, vomiting, or diarrhea. GENITOURINARY: Denies dysuria or hematuria. SKIN: Denies rash or itching. Reports burn to left hand. MUSCULOSKELETAL: Denies back pain, joint pain, or myalgia. NEUROLOGIC: Denies headache, numbness, or weakness. PSYCHIATRIC: Denies anxiety or depression. All other systems reviewed are negative, except as documented in HPI. [facility] Past Medical History Medical History A-fib Anxiety Chronic back pain HLD (hyperlipidemia) Hypertension Surgical History Surgical History Hx of arthroscopic knee surgery Family History Family History Mother Alzheimer disease Father Lymphoma, non-Hodgkin's Social History Social History Smoking status: Never smoker Alcohol intake: current Substance use: never Substance use type: does not use Lack of Transportation: No Lack of Food: Never True Current Housing: I Have Housing Concerned About Future Housing: No Difficulty Paying Gas/Electric Bills: No Difficulty Paying for Meds: No Currently Unemployed: No Education: Master's Degree or Higher Difficulty w/ Childcare or Family Care: No Living arrangements: with family Gender identity (if verbalized by the patient): Male Spiritual care concerns: No Comments At time of signature, agree with nursing past medical, surgical, social and family history. There is no relevant family history pertinent to the presenting complaint. Exam Narrative: GENERAL: This is a well-nourished, well-developed patient, in no apparent distress. HEAD: normocephalic, atraumatic. EYES: PERRL. Sclera clear/white. Vision is grossly intact. EARS: External ears normal NOSE: External nose normal NECK: Neck supple, non-tender without lymphadenopathy, masses or thyromegaly. CARDIOVASCULAR: Regular rate and rhythm without murmurs, gallops, or rubs. RESPIRATORY: Clear to auscultation. Breath sounds equal bilaterally. No wheezes, rales, or rhonchi. SKIN: warm, Dry, intact with no suspicious lesions or rash, good texture and turgor. Erythema approximate 4 x 2 cm to palm of left hand. No blistering noted. NEURO: awake, alert, and oriented to person, place and time. There were no obvious focal neurologic abnormalities. EXTREMITIES: No joint tenderness, effusion, or edema noted. Course Course Level of Care: Express Care Visit Vital Signs Vital signs: Vital Signs Temperature 36.4 C 06/13/24 17:07 Pulse Rate 62 06/13/24 17:07 Respiratory Rate 16 06/13/24 17:07 Pulse Oximetry 97 06/13/24 17:07 Oxygen Delivery Room Air 06/13/24 17:07 Temperature 36.4 C 06/13/24 17:07 Pulse Rate 62 06/13/24 17:07 Respiratory Rate 16 06/13/24 17:07 Pulse Oximetry 97 06/13/24 17:07 Oxygen Delivery Room Air 06/13/24 17:07 Reviewed MDM - Skin/Abscess/Foreign Bdy MDM Narrative Medical decision making narrative: Patient is aware of diagnosis, understands and agrees to treatment plan. Anticipatory guidance given. Patient agrees to follow-up as directed and is aware of reasons to seek care at the emergency department. Portions of this record may have been created with voice recognition software Wound care and Silvadene cream applied by NAYEL[employer] parts designer Plan Discharge Clinical Impression: First degree burn of left hand Qualifiers: Encounter type: initial encounter Burn of hand location: palm Qualified Code(s): T23.152A - Burn of first degree of left palm, initial encounter Patient Disposition: Home, Self-Care Condition: Stable Instructions: Antibiotic Form, Superficial Burn (DC) Additional Instructions: Keep wound clean, washing with soap and water. Apply Silvadene ointment twice a day for 7 days. Take ibuprofen or Tylenol every 6-8 hours as needed for pain. If you have concerns for infection such as redness, warmth, swelling, drainage follow-up with your primary care physician. Prescriptions: No Action coenzyme Q10 [Co Q-10] 100 mg capsule 100 mg PO DAILY flecainide 150 mg Tablet 150 mg PO Q12H aspirin [Adult Low Dose Aspirin] 81 mg Tablet,Delayed Release (Dr/Ec) 81 mg PO DAILY metoprolol tartrate 50 mg Tablet 50 mg PO Q12H [id number] acid-lutein [Adult Multivitamin (w-lutein)] 200-137.5 mcg Tablet,Chewable 1 tablet PO DAILY naproxen [Naprosyn] 500 mg tablet 500 mg PO BID Qty: 20 0RF alprazolam [Xanax] 0.5 mg tablet 0.5 mg PO DAILY PRN (Reason: anxiety) Qty: 10 0RF Rx Instructions: Take 1 tablet 30 minutes prior to take off. Do not drive with medication-may cause drowsiness. buspirone 7.5 mg tablet See Rx Instructions .ROUTE .COMPLEX Qty: 180 1RF Dose Instruction: TAKE 1 TABLET BY MOUTH TWICE A DAY NEEDED FOR ANXIETY Rx Instructions: TAKE 1 TABLET BY MOUTH TWICE A DAY NEEDED FOR ANXIETY (DME) lancets [OneTouch Delica Plus Lancet] 33 gauge misc See Rx Instructions .Route Qty: 100 1RF Rx Instructions: Use to check blood sugars daily (DME) OneTouch Verio test strips Strip See Rx Instructions .Route Qty: 100 1RF Rx Instructions: Use to check blood sugars daily atorvastatin 10 mg tablet See Rx Instructions .ROUTE .COMPLEX Qty: 90 1RF Dose Instruction: TAKE 1 TABLET BY MOUTH EVERYDAY AT BEDTIME Rx Instructions: TAKE 1 TABLET BY MOUTH EVERYDAY AT BEDTIME Follow-up/Referrals: Shiraz Fox DO [Primary Care Provider] - Time of Disposition: 17:36
[2024-06-13] MEDS: SILVER SULFADIAZINE 1% CR 50 GM JAR (*BKC) 1 APPLIC TOPICAL (17:41)
== END 2024-06-13 17:38 | disposition home or self-care (01) ==
PROVIDERS: Emergency Provider Nurse Practitioner Family; PCP Internal Medicine
DX: T23.152A Burn of first degree of left palm, initial encounter (principal); X19.XXXA Contact with other heat and hot substances, initial encounter; I48.91 Unspecified atrial fibrillation; I10 Essential (primary) hypertension; E78.5 Hyperlipidemia, unspecified; Z79.82 Long term (current) use of aspirin
CPT/HCPCS: 16000; 99213; A9270; G0463

== ENCOUNTER 2024-09-01 09:38 | Emergency (ER) | payer MEDICARE, SELFPAY ==
--- NOTE | ~2024-09-01 | XR_ITS ---
XR foot RT min 3V Ordering provider: ANTONIA Flores History: . pain dorsum, mid metatarsals x2 weeks. No injury . Comparison: None. FINDINGS: BONES: No acute fracture or dislocation. JOINT SPACES: Normal. No tarsal coalition. SOFT TISSUES: Normal. IMPRESSION: No acute osseous abnormality of the right foot. Reviewed, dictated and finalized at location A. [facility]LL[facility]
[2024-09-01 10:01] VITALS: BP 149/85; PULSE 66; RESP 16; TEMP 36.9; O2SAT 98
--- NOTE | 2024-09-01 10:57 | ED.GENADULT ---
HPI - General Adult General Chief complaint: Extremity Problem,Nontraumatic Stated complaint: R FOOT PAIN/SWELLING Time Seen by Provider: 09/01/24 10:16 Source: patient and RN notes reviewed Mode of arrival: ambulatory Limitations: no limitations History of Present Illness HPI narrative: Patient presents today complaining of intermittent right foot pain and swelling x2 weeks. States the swelling is worse during the day when he is up and walking. Denies trauma or injury. Denies history of gout. Reports he does have some tingling in the toes at baseline, but this is no worse than normal. Currently rates his pain 10/24 and has been taking some Aleve with relief. History of prediabetes with his last A1c of 6, per patient. Related Data Home Medications ?Medication ?Instructions ?Recorded ?Confirmed ?Last Taken ?Type aspirin 81 mg tablet,delayed 81 mg PO DAILY 10/28/19 09/01/24 03/31/21 History release (Adult Low Dose Aspirin) metoprolol tartrate 50 mg tablet 50 mg PO Q12H 10/28/19 09/01/24 03/31/21 History rsyytthokaqx-wqej-urdul acid 200 1 tablet PO DAILY 10/28/19 09/01/24 03/31/21 History mcg-lutein 137.5 mcg chewable tablet (Adult Multivitamin (w-lutein)) coenzyme Q10 100 mg capsule (Co 100 mg PO DAILY 02/02/20 09/01/24 03/31/21 History Q-10) flecainide 150 mg tablet 150 mg PO Q12H 06/27/24 09/01/24 Unknown History naproxen 500 mg tablet (Naprosyn) 500 mg PO BID PRN pain 06/27/24 09/01/24 Unknown History Allergies Allergy/AdvReac Type Severity Reaction Status Date / Time ampicillin Allergy Intermediate BLEEDING Verified 09/01/24 09:59 AND DIARRHEA amoxicillin Allergy Unknown Unknown Verified 09/01/24 09:59 Penicillins Allergy Unknown Unknown Verified 09/01/24 09:59 Review of Systems Review of Systems: CONSTITUTIONAL: Denies body aches, fever, chills, or sweats. EYES: Denies visual changes, redness, or discharge. ENT: Denies rhinorrhea, congestion, sore throat, or otalgia. CARDIOVASCULAR: Denies chest pain, palpitations, or edema. RESPIRATORY: Denies cough or dyspnea. GASTROINTESTINAL: Denies abdominal pain, nausea, vomiting, or diarrhea. GENITOURINARY: Denies dysuria or hematuria. SKIN: Denies rash, itching, or wounds. MUSCULOSKELETAL: +Right foot pain NEUROLOGIC: Denies headache, numbness, tingling, or weakness. PSYCH: Denies depression or anxiety. [facility] Past Medical History Medical History New onset type 2 diabetes mellitus Anxiety Hypertension HLD (hyperlipidemia) Chronic back pain A-fib Surgical History Surgical History Hx of arthroscopic knee surgery Family History Family History Mother Alzheimer disease Father Lymphoma, non-Hodgkin's Social History Social History Smoking status: Never smoker Alcohol intake: current Substance use: never Substance use type: does not use Lack of Transportation: No Lack of Food: Never True Current Housing: I Have Housing Concerned About Future Housing: No Difficulty Paying Gas/Electric Bills: No Difficulty Paying for Meds: No Currently Unemployed: No Education: Master's Degree or Higher Difficulty w/ Childcare or Family Care: No Living arrangements: with family Gender identity (if verbalized by the patient): Male Spiritual care concerns: No Comments At time of signature, I have reviewed and agree with nursing past medical, surgical, social and family history unless otherwise noted. Please see nursing chart for further information. There is no relevant family history pertinent to the presenting complaint Exam Narrative: GENERAL: Well-appearing, well-nourished, and in no acute distress. HEAD: Normocephalic, atraumatic. EYES: EOMI. No redness or drainage. Conjunctivae normal. ENT: Mucous membranes pink and moist. NECK: Normal AROM. CHEST: No respiratory distress. EXTREMITIES: Right foot:Tenderness to the dorsum of the foot with some mild localized erythema at the midfoot. No edema appreciated. Distal sensation intact. Capillary refill normal. Pedal pulse normal. Full range of motion of the toes. No red streaking. SKIN: Warm, dry, no rash. Capillary refill normal. Normal skin turgor. NEURO: No focal deficits. Alert and oriented x3. Gait steady. PSYCH: Normal affect. No signs of depression or anxiety. Course Course Level of Care: Express Care Visit Vital Signs Vital signs: Vital Signs Temperature 98.5 F 09/01/24 10:01 Pulse Rate 66 09/01/24 10:01 Respiratory Rate 16 09/01/24 10:01 Blood Pressure 149/85 H 09/01/24 10:01 Pulse Oximetry 98 09/01/24 10:01 Temperature 98.5 F 09/01/24 10:01 Pulse Rate 66 09/01/24 10:01 Respiratory Rate 16 09/01/24 10:01 Blood Pressure 149/85 H 09/01/24 10:01 Pulse Oximetry 98 09/01/24 10:01 Reviewed Medical Decision Making MDM Narrative Medical decision making narrative: Foot x-ray negative. Will treat patient short course of prednisone and Keflex for gout verses mild cellulitis. Patient agrees with plan to follow-up with Podiatry if symptoms are not improving. Anticipatory guidance given. Differential Diagnosis Differential Diagnosis: Gout, cellulitis, osteoarthritis Vital Signs Vital Signs: Vital Signs Temperature 98.5 F 09/01/24 10:01 Pulse Rate 66 09/01/24 10:01 Respiratory Rate 16 09/01/24 10:01 Blood Pressure 149/85 H 09/01/24 10:01 Pulse Oximetry 98 09/01/24 10:01 Temperature 98.5 F 09/01/24 10:01 Pulse Rate 66 09/01/24 10:01 Respiratory Rate 16 09/01/24 10:01 Blood Pressure 149/85 H 09/01/24 10:01 Pulse Oximetry 98 09/01/24 10:01 Imaging Data Radiologist's impression: ITS Impressions Foot X-Ray 09/01/24 10:39 IMPRESSION: No acute osseous abnormality of the right foot. Critical Care Time Critical Care Time Critical Care Time: No Discharge Plan Discharge Clinical Impression: Foot pain, right Patient Disposition: Home, Self-Care Condition: Stable Additional Instructions: Please take medications as prescribed. Take Tylenol as needed for pain. 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 Your blood pressure was elevated above 120/80 today at Urgent Care. This puts you above the threshold for follow up. Please schedule a followup visit with your personal physician as soon as possible, for further evaluation and treatment. Even blood pressure exceeding 120/80 may indicate pre-hypertension. Patient Language: Armenian Prescriptions: New prednisone 20 mg tablet 40 mg PO DAILY 5 Days Qty: 10 0RF cephalexin 500 mg capsule 500 mg PO Q6H 7 Days Qty: 28 0RF No Action coenzyme Q10 [Co Q-10] 100 mg capsule 100 mg PO DAILY naproxen [Naprosyn] 500 mg tablet 500 mg PO BID PRN (Reason: pain) aspirin [Adult Low Dose Aspirin] 81 mg Tablet,Delayed Release (Dr/Ec) 81 mg PO DAILY metoprolol tartrate 50 mg Tablet 50 mg PO Q12H xrntgfaz-gmf-tlpjq acid-lutein [Adult Multivitamin (w-lutein)] 200-137.5 mcg Tablet,Chewable 1 tablet PO DAILY flecainide 150 mg tablet 150 mg PO Q12H (DME) lancets [OneTouch Delica Plus Lancet] 33 gauge misc See Rx Instructions .Route Qty: 100 1RF Rx Instructions: Use to check blood sugars daily (DME) OneTouch Verio test strips Strip See Rx Instructions .Route Qty: 100 1RF Rx Instructions: Use to check blood sugars daily atorvastatin 10 mg tablet See Rx Instructions .ROUTE .COMPLEX Qty: 90 1RF Dose Instruction: TAKE 1 TABLET BY MOUTH EVERYDAY AT BEDTIME Rx Instructions: TAKE 1 TABLET BY MOUTH EVERYDAY AT BEDTIME buspirone 7.5 mg tablet See Rx Instructions .ROUTE .COMPLEX Qty: 180 1RF Dose Instruction: TAKE 1 TABLET BY MOUTH TWICE A DAY NEEDED FOR ANXIETY Rx Instructions: TAKE 1 TABLET BY MOUTH TWICE A DAY NEEDED FOR ANXIETY Follow-up/Referrals: Cathy Lee, SENIOR FRONT END WEB DEVELOPER-C [Primary Care Provider] - Time of Disposition: 11:05
== END 2024-09-01 11:13 | disposition home or self-care (01) ==
PROVIDERS: Emergency Provider Nurse Practitioner; PCP Clinical Nurse Specialist
DX: M79.671 Pain in right foot (principal); R73.03 Prediabetes; I10 Essential (primary) hypertension; E78.5 Hyperlipidemia, unspecified; I48.91 Unspecified atrial fibrillation; Z79.82 Long term (current) use of aspirin
CPT/HCPCS: 73630; 99213; G0463

== ENCOUNTER 2025-03-04 08:15 | Emergency (ER) | payer MEDICARE, SELFPAY ==
[2025-03-04 08:23] VITALS: BP 180/89; PULSE 68; RESP 16; TEMP 36.3; O2SAT 97
--- NOTE | 2025-03-04 08:29 | ED.EXTPRO ---
HPI - Extremity Problem General Chief complaint: Extremity Problem,Nontraumatic Stated complaint: Infection Index Finger Time Seen by Provider: 03/04/25 08:24 Source: patient and RN notes reviewed Mode of arrival: ambulatory Limitations: no limitations History of Present Illness HPI Narrative: Patient presents today with an abscess to the dorsum of the right 2nd finger. Reports that started out with some severe itching to the area 3-4 days ago then yesterday developed pustule and some redness and has worsened since then. He tried some triple antibiotic ointment without improvement. He has been staying at his other [place] and has many insect bites and believes this may be the cause. Related Data Home Medications ?Medication ?Instructions ?Recorded ?Confirmed ?Last Taken ?Type aspirin 81 mg tablet,delayed 81 mg PO DAILY 10/28/19 09/09/24 03/31/21 History release (Adult Low Dose Aspirin) metoprolol tartrate 50 mg tablet 50 mg PO Q12H 10/28/19 09/09/24 03/31/21 History cuecpljifjux-wsgb-zumfr acid 200 1 tablet PO DAILY 10/28/19 09/09/24 03/31/21 History mcg-lutein 137.5 mcg chewable tablet (Adult Multivitamin (w-lutein)) coenzyme Q10 100 mg capsule (Co 100 mg PO DAILY 02/02/20 09/09/24 03/31/21 History Q-10) flecainide 150 mg tablet 150 mg PO Q12H 06/27/24 09/09/24 Unknown History naproxen 500 mg tablet (Naprosyn) 500 mg PO BID PRN pain 06/27/24 09/09/24 Unknown History Allergies Allergy/AdvReac Type Severity Reaction Status Date / Time ampicillin Allergy Intermediate BLEEDING Verified 09/09/24 09:53 AND DIARRHEA amoxicillin Allergy Unknown Unknown Verified 09/09/24 09:53 Penicillins Allergy Unknown Unknown Verified 09/09/24 09:53 PMFSH Past Medical History Medical History New onset type 2 diabetes mellitus Anxiety Hypertension HLD (hyperlipidemia) Chronic back pain A-fib Surgical History Surgical History Hx of arthroscopic knee surgery Family History Family History Mother Alzheimer disease Father Lymphoma, non-Hodgkin's Social History Social History Smoking status: Never smoker Alcohol intake: current Substance use: never Substance use type: does not use Lack of Transportation: No Lack of Food: Never True Current Housing: I Have Housing Concerned About Future Housing: No Difficulty Paying Gas/Electric Bills: No Difficulty Paying for Meds: No Currently Unemployed: No Education: Master's Degree or Higher Difficulty w/ Childcare or Family Care: No Living arrangements: with family Gender identity (if verbalized by the patient): Male Spiritual care concerns: No Comments At time of signature, I have reviewed and agree with nursing past medical, surgical, social and family history unless otherwise noted. Please see nursing chart for further information. There is no relevant family history pertinent to the presenting complaint Exam Narrative: GENERAL: Well-appearing, well-nourished, and in no acute distress. HEAD: Normocephalic, atraumatic. EYES: EOMI. No redness or drainage. Conjunctivae normal. ENT: Mucous membranes pink and moist. NECK: Normal AROM. CHEST: No respiratory distress. EXTREMITIES: Right 2nd finger: 0.5cm superficial abscess to the dorsum of the proximal phalanx with surrounding erythema. No edema or red streaking noted. Distal sensation intact. Capillary refill normal. Full range of motion noted. SKIN: Warm, dry, no rash. Capillary refill normal. Normal skin turgor. NEURO: No focal deficits. Alert and oriented x3. Gait steady. PSYCH: Normal affect. No signs of depression or anxiety. Course Course Level of Care: Express Care Visit Vital Signs Vital signs: Vital Signs Temperature 97.3 F L 03/04/25 08:23 Pulse Rate 68 03/04/25 08:23 Respiratory Rate 16 03/04/25 08:23 Blood Pressure 180/89 H 03/04/25 08:23 Pulse Oximetry 97 03/04/25 08:23 Temperature 97.3 F L 03/04/25 08:23 Pulse Rate 68 03/04/25 08:23 Respiratory Rate 16 03/04/25 08:23 Blood Pressure 180/89 H 03/04/25 08:23 Pulse Oximetry 97 03/04/25 08:23 Reviewed. Follow-up blood [id number]. Procedures Abscess I/D hand: Date of Incision: 03/04/25 Time of Incision: 08:30 Side (if applicable): right Sedation/analgesia: none Local Anesthetic: none Technique: incised with #11 blade Amount of fluid expressed (mL): 0.1 Irrigation: No Packing used?: none I&D Results: Pus Abcess I&D Additional Comments: Dressed with Band-Aid. Patient tolerated procedure well. MDM - Extremity (Nontraumatic) MDM Narrative Medical decision making narrative: 74-year-old male patient presents an abscess to the right 2nd finger that has been developing over the last 3-4 days. Abscess symptom lanced and drained. Prescription for Keflex sent to pharmacy. Vital signs stable. Patient is on metoprolol for his hypertension. Care instructions and anticipatory guidance given. Differential Diagnosis Differential diagnosis: Likely cellulitis and other (Abscess, insect bite, impetigo) Critical Care Time Critical Care Time Critical Care Time: No Discharge Plan Discharge Clinical Impression: Abscess of finger, right Patient Disposition: Home Condition: Stable Instructions: Antibiotic Form, Abscess Incision and Drainage (DC) Additional Instructions: Your abscess has been lanced and drained. Wash daily with soap and water and keep covered until scabbed over. Do not submerge your hand in standing water such as pools, hot tubs, lakes until scab forms. Take the Keflex as prescribed for the infection. Follow-up with your PCP in 3 days if symptoms are not improving. Go to the ER if you develop a fever or red streaking up your hand. Your blood pressure was elevated above 120/80 today at Urgent Care. This puts you above the threshold for follow up. Please schedule a followup visit with your personal physician as soon as possible, for further evaluation and treatment. Even blood pressure exceeding 120/80 may indicate pre-hypertension. Patient Language: Indonesian Prescriptions: New cephalexin 500 mg capsule 500 mg PO Q6H 7 Days Qty: 28 0RF No Action coenzyme Q10 [Co Q-10] 100 mg capsule 100 mg PO DAILY naproxen [Naprosyn] 500 mg tablet 500 mg PO BID PRN (Reason: pain) aspirin [Adult Low Dose Aspirin] 81 mg Tablet,Delayed Release (Dr/Ec) 81 mg PO DAILY metoprolol tartrate 50 mg Tablet 50 mg PO Q12H ozzgkosk-txb-zfhgj acid-lutein [Adult Multivitamin (w-lutein)] 200-137.5 mcg Tablet,Chewable 1 tablet PO DAILY flecainide 150 mg tablet 150 mg PO Q12H (DME) lancets [OneTouch Delica Plus Lancet] 33 gauge misc See Rx Instructions .Route Qty: 100 1RF Rx Instructions: Use to check blood sugars daily (DME) OneTouch Verio test strips Strip See Rx Instructions .Route Qty: 100 1RF Rx Instructions: Use to check blood sugars daily alprazolam [Xanax] 0.5 mg tablet 0.5 mg PO DAILY PRN (Reason: anxiety) Qty: 20 0RF Rx Instructions: Do not drive with medication-may cause drowsiness. atorvastatin 10 mg tablet See Rx Instructions .ROUTE .COMPLEX Qty: 90 1RF Dose Instruction: TAKE 1 TABLET BY MOUTH EVERYDAY AT BEDTIME Rx Instructions: TAKE 1 TABLET BY MOUTH EVERYDAY AT BEDTIME buspirone 7.5 mg tablet See Rx Instructions .ROUTE .COMPLEX Qty: 180 1RF Dose Instruction: TAKE 1 TABLET BY MOUTH TWICE A DAY NEEDED FOR ANXIETY Rx Instructions: TAKE 1 TABLET BY MOUTH TWICE A DAY NEEDED FOR ANXIETY Follow-up/Referrals: Shiraz Fox DO [Primary Care Provider] - Time of Disposition: 08:43
[2025-03-04 08:45] VITALS: BP 160/94
== END 2025-03-04 08:50 | disposition home or self-care (01) ==
PROVIDERS: Emergency Provider Nurse Practitioner; PCP Internal Medicine
DX: L02.511 Cutaneous abscess of right hand (principal); I48.91 Unspecified atrial fibrillation; I10 Essential (primary) hypertension; E11.9 Type 2 diabetes mellitus without complications; E78.5 Hyperlipidemia, unspecified
CPT/HCPCS: 10060; 99213; G0463

== ENCOUNTER 2025-03-30 08:27 | Outpatient (CLI) | payer MEDICARE, SELFPAY ==
--- NOTE | ~2025-03-30 | CT_ITS ---
EXAMINATION: CT abdomen pelvis wo/w con DATE: 03/30/2025 09:35 INDICATION: Hematuria TECHNIQUE: Computed tomography (CT) of the abdomen and pelvis was performed with and without intraven ous contrast. The dose-length product was 1688.39 mGy-cm. COMPARISON: 11/13/2021 FINDINGS: The liver, gallbladder, adrenal glands, pancreas and spleen are unremarkable. Kidneys unremarkable. N o renal, ureteral or bladder calculi. No abdominal aortic aneurysm. Moderate atherosclerotic disease in the abdominal aorta. No free fluid. Prostate gland is moderately enlarged and partially calcified and impresses upon the base the bladder . No bladder calculi. No CT evidence for bladder mass. Concentric thickening of the rivera of the bladde r. Bones appear osteopenic. Multilevel degenerative change scattered throughout the visualized spine. Gr shruthi 1 anterolisthesis of L4 on L5, unchanged. IMPRESSION: 1. No CT evidence for renal, ureteral or bladder calculi. No CT evidence for a renal mass or bladder mass. 2. Concentric thickening of the rivera of the bladder which may be sequelae from a enlarged prostate g land. Differential includes cystitis. Reviewed, dictated and finalized at location A. IMPRESSION: 1. No CT evidence for renal, ureteral or bladder calculi. No CT evidence for a renal mass or bladder mass. 2. Concentric thickening of the rivera of the bladder which may be sequelae from a enlarged prostate gland. Differential includes cystitis.
--- OUTSIDE RECORDS SUMMARY | 2025-03-30 08:34 | XMS_ITS | Clinical Summary ---
Author Organization [facility] Address [address] [place] [address] Care Team Providers Care Clinical Nurse Reviewer Name Role Phone Shiraz Fox DO Primary Care Provider [phone] Source Comments [facility],non-owned Affiliates and Associated Physician Practices is amultiple site organization consisting of ambulatory clinics and hospital sitesin [place], [place], [place] and [place]. This disclosure is being madepursuant to the Care Everywhere program and may not contain all information available regarding this patient. Last updated 18.[facility] Allergies Active Allergy Reactions Criticality Noted Date Comments Ampicillin Bleeding 12/27/2013 Kdc:Epinephrine+Sodium Bisulfite Other Low 12/27/2013 Concerned about increase in HR Family History Medical History Relation Name Comments Cancer Father lymphoma Hypertension Mother Relation Name Status Comments Father Mother Social History Tobacco Use Types Packs/Day Years Used Date Smoking Tobacco: Never Smokeless Tobacco: Never Alcohol Use Standard Drinks/Week Comments Yes 0 (1 standard drink = 0.6 oz pur e alcohol) Sex and Gender Information Value Date Recorded Sex Assigned at Not on file 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 Gender Identity Not on file Sexual Orientation Not on file Last Filed Vital Signs Vital Sign Reading Time Taken Comments Blood Pressure 135/82 01/05/2014 12:31 PM CDT Pulse 58 01/05/2014 12:31 PM CDT Temperature - - Respiratory Rate - - Oxygen Saturation 97% 01/05/2014 12:31 PM CDT Inhaled Oxygen Concentration - - Weight 86.2 kg (190 lb) 01/05/2014 11:19 AM CDT Height 182.9 cm (6') 01/05/2014 11:19 AM CDT Body Mass Index 25.77 01/05/2014 11:19 AM CDT Plan of Treatment Health Maintenance Due Date Last Done Comments HEPATITIS C SCREENING 10/04/1966 DTAP/TDAP/TD VACCINES (1 - Tdap) 1967 PNEUMOCOCCAL VACCINE 50+ (1 of 1 - PCV) 1998 ZOSTER VACCINE (1 of 2) 1998 Respiratory Syncytial Virus (RSV) Vaccine Pt: or over 60 yrs (1 - 1-dose 75+ series) 2023 COVID-19 VACCINE (1 - 2023-2 5 season) 2024 DEPRESSION SCREENING 08/17/2024 INFLUENZA VACCINE (#1) 2025 HEPATITIS B VACCINE Aged Out No longe r eligible based on patient's age to complete this topic HIB VACCINE Aged Out No longer eligi ble based on patient's age to complete this topic HPV VACCINE Aged Out No longer eligi ble based on patient's age to complete this topic MENINGOCOCCAL (Group B) VACC INE SHARED DECISION-MAKING Aged Out No longer eligibl e based on patient's age to complete this topic MENINGOCOCCAL GROUPS A/C/Y/W VACCINE Aged Out No longer eligible b ased on patient's age to complete this topic Insurance MANAGED MEDICARE ADV Care Teams Clinical Nurse Reviewer Relationship Specialty Start Date End Date Shiraz Fox DO PCP - General 12/15/13
--- OUTSIDE RECORDS SUMMARY | 2025-03-30 08:34 | XMS_ITS | Patient Health Record ---
Author Organization [facility] Address [address] [facility] [address] [place] [address] Care Team Providers Care Granite Setter Name Role Phone Kelly Herrera Unavailable [phone] Reason For Referral No Information Medications Medication SIG (Take, Route, Frequency, Duration) Notes Start Date End Date Status DULoxetine HCl 30 MG Oral Active Metoprolol Tartrate 50 MG Oral Active Flecainide Acetate 150 mg Oral Active Plan Of Treatment No Information Insurance Providers Payer Name Payer Address Payer Phone Subscriber Number Group Number Insured Name Patient Relationship to Insured Coverage Start Date Coverage End Date [facility] [address] [place] [phone] [id number] ALINA WEINER Self - patient is the insured
--- OUTSIDE RECORDS SUMMARY | 2025-03-30 08:34 | XMS_ITS | Encounter Summary ---
Author Organization [facility] Address [address] [place] [address] Care Team Providers Care Technical Professional Name Role Phone AgathachinaShiraz graff DO Primary Care Provider Encounter Details Date Type Department Care Team (Late st Contact Info) Description 11/10/[address] 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 Gender Identity Not on file Sexual Orientation Not on file documented as of this encounter Plan of Treatment Not on file documented as of this encounter Procedures Procedure Name Priority Date/Time Associated Diagnosis Comments DERMATOPATHOLOGY Routine 11/09/2018 12:0 0 AM CDT documented in this encounter Results * DERMATOPATHOLOGY (11/09/2018 12:00 AM CDT) Case Report Dermatopathology Report Case: [id number] Authorizing Provider: Hector Cisneros MD Collected: 11/09/2018 12:00 AM Pathologist: Alexia Dent MD Received: 11/10/2018 11:35 AM Specimen: Skin, right upper back 9 3:12 PM CDT DERMATOPATHOLOGY LABORATORY Final Diagnosis Specimen A. SKIN, right upper back: ACTINIC KERATOSIS (L57.0) NOT PRESENT AT SAMPLED MARGIN (see microscopic description) 3:12 PM T DERMATOPATHOLOGY LABORATORY at 1512 CDT Clinical History R/O BCC. 3:12 PM CDT DERMATOPATHOLOGY LABORATORY Gross Description Specimen A: Received is one formalin filled container labeled with the patients name and designated right upper back. The specimen consists of a shave removal measuring [id number]. The margin is inked green. Jar 0. 3:12 PM CDT DERMATOPATHOLOGY LABORATORY Microscopic Description Specimen A. SKIN, right upper back: There is focal parakeratosis. The lower half of the epidermis shows disorderly maturation of keratinocytes with nuclear pleomorphism. The dermis shows a band-like, chronic inflammatory infiltrate with occasional apoptotic keratinocytes and some basal vacuolar alteration. Additional deeper sections were obtained and reviewed. This lesion is not present at the sampled margin of the specimen. 3:12 PM CDT DERMATOPATHOLOGY LABORATORY Disclaimer An external and internal positive and negative controls are appropriate for the histochemical, immunohistochemical and immunofluorescence stain(s) in this case (if any), except where stated explicitly. The performance characteristics of the stain(s) cited in this report were developed and its performance characteristic determined by the Dermatopathology Laboratory at [facility], directed by Dr. Shireen Boone. These tests need not be, and therefore are not, approved by the [place] Food and Drug Administration. The tests are used for clinical purposes. Billing Codes Specimen Charges Stain Charges 97141 1 3:12 PM CDT DERMATOPATHOLOGY LABORATORY Embedded Images 3:12 PM CDT DERMATOPATHOLOGY LABORATORY Pathology/Cytolog y TISSUE SPECIMEN FROM SKIN / Unknown 11/09/2018 11/10/2018 11:35 AM CDT us Hector Cisneros MD LAB - PATHOLOGY/CYTOLOGY ORD ERABLES Final Result DERMATOPATHOLOGY LABORATORY [facility] - Department of Dermatology [address] [place] [address], [facility] [phone] documented in this encounter Visit Diagnoses Not on filedocumented in this encounter Care Teams Technical Professional Relationship Specialty Start Date End Date Shiraz Fox DO PCP - General 12/15/13 documented as of this encounter
--- OUTSIDE RECORDS SUMMARY | 2025-03-30 08:34 | XMS_ITS | Continuity of Care Document ---
Author Organization [facility] Address [address] [place] [address] Exec utive [facility] [address] [place] [address] Phone Care Team Providers Care Freelance Recruiter Name Role Phone Eugenie Luo Unavailable Unavailable Advance Directives Directive Yes / No Effective Date File Name No Information Encounters Encounter Description Practice Location Reason(s) For Visit Diagnoses Date Provider Providers Copied on Encounter Formerly [facility], [address], [place], [place], [id number], [place] tel:[phone] [facility] No Information [address] , [address], [place], [address], [place]. tel:[phone] Family History Family Member Type Diagnosis Age At Onset No Information Payers Payer name Insurance type Covered constitution party ID Authoriza tion(s) No Information Social History Type Description Quantity Date Captured Comments Sex Male Smoking Status No Information Chief Complaint And Reason For Visit No Information Reason For Referral Reason For Referral No Information History Of Present Illness Encounter Date Complaint History Of Prese nt Illness No Information Functional Status Date Functional Assessmen t No Information Instructions Date Instruction Additional Infor mation No Information Assessments Type Assessment Date No Information Patient Care Teams Name Effective Dates (start - stop) Status Members No Information
--- OUTSIDE RECORDS SUMMARY | 2025-03-30 08:34 | XMS_ITS | Encounter Summary ---
Author Organization [facility] Health Address [address] [place] [address] Care Team Providers Care Snaker Tractor Driver Name Role Phone AgathachinaShiraz graff DO Primary Care Provider [phone] Encounter Details Date Type Department Care Team (Late st Contact Info) Description 04/14/2018 Lab Requisition [facility] Care DermPath Lab [address] [facility], [place] [id number] Hector Cisneros MD [address] [place] [address] Social History Tobacco Use Types Packs/Day Years Used Date Smoking Tobacco: Never Smokeless Tobacco: Never Alcohol Use Standard Drinks/Week Comments Yes 0 (1 standard drink = 0.6 oz pur e alcohol) Sex and Gender Information Value Date Recorded Sex Assigned at Not on file 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 Gender Identity Not on file Sexual Orientation Not on file documented as of this encounter Plan of Treatment Not on file documented as of this encounter Procedures Procedure Name Priority Date/Time Associated Diagnosis Comments DERMATOPATHOLOGY Routine 04/13/2018 12:0 0 AM CDT documented in this encounter Results * DERMATOPATHOLOGY (04/13/2018 12:00 AM CDT) Case Report Dermatopathology Report Case: [id number] Authorizing Provider: Hector Cisneros MD Collected: 04/13/2018 12:00 AM Pathologist: Marianela Boone MD Received: 04/14/2018 12:02 PM Specimen: Skin, left lateral mid back 8 1:32 PM CDT DERMATOPATHOLOGY LABORATORY Final Diagnosis Specimen A. SKIN, left lateral mid back: DERMAL SCAR RESIDUAL SQUAMOUS CELL CARCINOMA NOT IDENTIFIED (L90.5) 1:32 PM CDT DERMATOPATHOLOGY LABORATORY at 1332 CDT Clinical History Bx proven SCCIs pagetoid type. Previous Bx: [id number]. 1:32 PM CDT DERMATOPATHOLOGY LABORATORY Gross Description Specimen A: Received is one formalin filled container labeled with the patient's name and designated left lateral mid back. The specimen consists of a curettage and desiccation biopsy measuring [id number]. Jar 0. 1:32 PM CDT DERMATOPATHOLOGY LABORATORY Microscopic Description Specimen A. SKIN, left lateral mid back: There are fibroblasts and collagen bundles oriented parallel to the skin surface. There are elongated blood vessels, some of which are oriented perpendicular to the skin surface. No residual squamous cell carcinoma is identified. 1:32 PM CDT DERMATOPATHOLOGY LABORATORY Disclaimer An external and internal positive and negative controls are appropriate for the histochemical, immunohistochemical and immunofluorescence stain(s) in this case (if any), except where stated explicitly. The performance characteristics of the stain(s) cited in this report were developed and its performance characteristic determined by the Dermatopathology Laboratory at [facility]. These tests need not be, and therefore are not, approved by the [place] Food and Drug Administration. The tests are used for clinical purposes. Billing Codes Specimen Charges Stain Charges 51215 1 1:32 PM CDT DERMATOPATHOLOGY LABORATORY Embedded Images 1:32 PM CDT DERMATOPATHOLOGY LABORATORY Pathology/Cytolog y TISSUE SPECIMEN FROM SKIN / Unknown 04/13/2018 04/14/2018 12:02 PM CDT us Hector Cisneros MD LAB - PATHOLOGY/CYTOLOGY ORD ERABLES Final Result DERMATOPATHOLOGY LABORATORY [facility] - Department of Dermatology [address] [place] [address], 5th [place] [address], [facility] [phone] documented in this encounter Visit Diagnoses Not on filedocumented in this encounter Care Teams Snaker Tractor Driver Relationship Specialty Start Date End Date Shiraz Fox DO PCP - General 12/15/13 documented as of this encounter
--- OUTSIDE RECORDS SUMMARY | 2025-03-30 08:34 | XMS_ITS | Clinical Summary ---
Author Organization [facility] C Address [address] [facility] [place] [address] Care Team Providers Care Remotely Operated Vehicle Name Role Phone Alina Fox. DO Primary Care Provider [phone] Brenda Dukes MD Unavailable [phone] Allergies Active Allergy Reactions Criticality Noted Date Comments Ampicillin Diarrhea Low 03/23/2019 Penicillins Medications aspirin (ASPIR-81) 81 mg tablet take 1 tablet (81MG) by oral route every day [address] (NexIUM) 40 mg capsule take 1 capsule (40MG) by oral route every day 0 3 Active multivitamin tablet tablet take 1 tablet by oral route every day with food 0 3 Active flecainide (TAMBOCOR) 150 mg tablet TAKE 1 TABLET BY MOUTH EVERY 12 HOURS 180 tablet 1 8 Active ubidecarenone (COENZYME Q10) 100 mg tablet Take 100 mg by mouth daily. Active busPIRone (BUSPAR) 7.5 mg tablet Take 7.5 mg by mouth 2 (two) times a day 0 Active metoprolol tartrate (LOPRESSOR) 50 mg immediate release tablet TAKE 1 TABLET BY MOUTH TWICE A DAY 180 tablet 3 1 Active atorvastatin (LIPITOR) 10 mg tablet Take 10 mg by mouth nightly at bedtime. 1 Active flecainide (TAMBOCOR) 150 mg tablet TAKE 1 TABLET BY MOUTH TWICE A DAY 180 tablet 3 2 Active erythromycin (ILOTYCIN) ophthalmic ointment Place ointment on right eyelid incisions 3 times a day. Only place inside the eye for irritation. 3.5 g 3 3 Active Active Problems Problem Noted Date Diagnosed Date Elevated blood pressure read ing without diagnosis of hypertension 09/13/2019 Assessment & Plan (09/13/2019 10:28 AM JUNIOR NETWORK ADMINISTRATOR): He is going to monitor his blood pressure at home. He believes he has an upcoming appointment with his PCP as well. He will call me in a couple of weeks with readings. Dyslipidemia 09/17/2017 Assessment & Plan (03/30/2021 12:39 PM CDT): On chronic lipid lowering therapy with good control. No changes made. LDL was 102 on 01/30/2021 checked through his PCP. Assessment & Plan (09/13/2019 10:27 AM JUNIOR NETWORK ADMINISTRATOR): Point of care lipids today looked awful with a total cholesterol of 240 and a triglyceride level greater than 650. LDL and HDL could not be calculated. He is going to clean up his diet and get fasting lipids in the next few weeks. Assessment & Plan (09/14/2018 10:36 AM JUNIOR NETWORK ADMINISTRATOR): On chronic lipid lowering therapy with good control. No changes made. Assessment & Plan (09/17/2017 11:24 AM JUNIOR NETWORK ADMINISTRATOR): On chronic lipid-lowering therapy. He may benefit from an increase in his atorvastatin dosage, but will defer to his PCP who has more of a track record of what his lipids have been. Resuming fenofibrate might be another consideration. Encounter for monitoring flecainide therapy 08/19 Assessment & Plan (09/13/2019 10:28 AM JUNIOR NETWORK ADMINISTRATOR): Normal QT interval. Assessment & Plan (09/16/2017 10:37 AM JUNIOR NETWORK ADMINISTRATOR): Acceptable EKG intervals on flecainide. No changes to his medications were made today. Atrial fibrillation 08/18/2014 Overview (11/22/2016): A Fib Assessment & Plan (03/30/2021 12:37 PM CDT): Maintaining sinus rhythm on flecainide. No change made. He has a low chads Vasc score and is not anticoagulated. Assessment & Plan (09/13/2019 10:27 AM JUNIOR NETWORK ADMINISTRATOR): Maintaining sinus rhythm on flecainide. QT interval is normal on today's EKG. Assessment & Plan (09/14/2018 10:36 AM JUNIOR NETWORK ADMINISTRATOR): Asymptomatic on flecainide. He has an appointment in the arrhythmia Center today. Assessment & Plan (09/17/2017 11:23 AM JUNIOR NETWORK ADMINISTRATOR): Quiescent on flecainide, which she should continue. He is not anticoagulated both because flecainide has been so effective and because he has a low Tobias score. Assessment & Plan (09/16/2017 10:37 AM JUNIOR NETWORK ADMINISTRATOR): Quiet on flecainide and metoprolol.[id number]=1, continue ASA. He can follow up in 1 year for office visit and 12 lead EKG. Surgical History Surgery Date Site/Laterality Comments VASECTOMY Vasectomy ARTHROSCOPY KNEE W/ DRILLING Medical History Medical History Date Comments Hx Other Medical Arrhythmias Hx Other Medical Chronic Anxiety Atrial fibrillation (HCC) Family History Medical History Relation Name Comments Alzheimer's disease Father 2 Alzheime r's Disease; Hypertension Father 2 Hypertension; Lymphoma Father 2 Lymphoma; Glaucoma Mother 2 Glaucoma; Other Mother 2 Cataract Surger y; Relation Name Status Comments Father 1 Alive Father 2 Mother 1 Alive Mother 2 Social History Tobacco Use Types Packs/Day Years Used Date Smoking Tobacco: Never Smokeless Tobacco: Never Alcohol Use Standard Drinks/Week Comments Yes 0 (1 standard drink = 0.6 oz pur e alcohol) Sex and Gender Information Value Date Recorded Sex Assigned at Not on file Legal Sex Male 10:56 AM JUNIOR NETWORK ADMINISTRATOR Gender Identity Not on file Sexual Orientation Not on file Obstetrics History Last Filed Vital Signs Vital Sign Reading Time Taken Comments Blood Pressure 130/80 03/25/2021 3:15 PM CDT Pulse 62 03/25/2021 2:48 PM CDT Temperature - - Respiratory Rate - - Oxygen Saturation 98% 03/25/2021 2:48 PM CDT Inhaled Oxygen Concentration - - Weight 89.8 kg (198 lb) 03/25/2021 2:48 PM CDT Height 180.3 cm (5' 11) 03/25/2021 2:48 PM CDT Body Mass Index 27.62 03/25/2021 2:48 PM CDT Plan of Treatment Health Maintenance Due Date Last Done Comments Depression Screening 1948 Fall Risk Assessment 1950 Hepatitis C Screening 1950 Hepatitis B Screening 1966 Well Visit 65+ 2013 Pneumococcal vaccine 65+ (2 of 2 - PCV20 or PCV21) 02/09/2019 02/09/2018 DTaP/Tdap/Td Vaccine (2 - Td or Tdap) 08/30/2024 08/30/2014 Influenza Vaccine (#1) 2025 9, 05/30/2018, 05/20/2017, Additional history exists Zoster Vaccine Completed 02/03/2019, 07/10/2018 Insurance [employer] MEDICARE [facility] Address: [facility] [address] [place] [address] [employer] Care Teams Remotely Operated Vehicle Relationship Specialty Start Date End Date Alina Fox DO PCP - General 11/14/16 Brenda Dukes MD [address] [facility] [address] [place] [address] Loading Dock Hand Cardiology 10/31/20
--- OUTSIDE RECORDS SUMMARY | 2025-03-30 08:34 | XMS_ITS | Clinical Summary ---
Author Organization [facility] [address] [facility] Address [address] [place] [address] Care Team Providers Care Residential Aide Name Role Phone Shiraz Fox DO Primary Care Provider Allergies Active Allergy Reactions Criticality Noted Date Comments Ampicillin Diarrhea Low 03/23/2019 Penicillins Unknown,Diarrhea Low 12/27/2013 Medications aspirin (ECOTRIN EC) 81 mg Tablet, Delayed Release (E.C.) 81 mg. 12/17/2012 Acti ve atorvastatin 10 mg tablet Take 10 mg by mouth daily at bedtime. 1 02/02/2019 Active multivitamin (DAILY-EDGARDO) tablet take 1 tablet by oral route every day with food 12/28/2012 Active ubidecarenone (COENZYME Q10) 100 mg Tablet Take 100 mg by mouth. Active busPIRone (BUSPAR) 7.5 mg Tablet Take 7.5 mg by mouth 2 times daily. 02/24/2020 Active esomeprazole (NexIUM) 20 mg Capsule, Delayed Release(E.C.) Take 20 mg by mouth daily before breakfast. Active flecainide (TAMBOCOR) 150 mg Tablet TAKE 1 TABLET BY MOUTH TWICE A DAY 180 Tablet 3 10/11/2024 Active metoprolol tartrate (LOPRESSOR) 50 mg tablet TAKE 1 TABLET BY MOUTH TWICE A DAY 180 Tablet 1 12/20/2024 Active Active Problems Problem Noted Date Diagnosed Date Lumbar stenosis with neurogenic claudication 02/2019 Spondylolisthesis of lumbosacral region 03/23/20 19 Encounters Date Type Department Care Team Description 03/21/2025 External Device Data STL ABSTRACTION Provider, Abstract 01/31/2025 External Device Data STL ABSTRACTION Provider, Abstract 01/10/2025 External Device Data ST[facility] ABSTRACTION Provider, Abstract 01/05/2025 External Device Data STL ABSTRACTION Provider, Abstract 01/04/2025 10:45 AM CDT Office Visit [facility] - [address] [facility] [address] [address] [facility] [address] [address] [place] [address] Wilbert Barksdale MD Primary hypertension (Primary Dx); Mixed hyperlipidemia; Paroxysmal atrial fibrillation (CMS/HCC) 01/04/2025 External Device Data STL ABSTRACTION Provider, Abstract 01/03/2025 External Device Data STL ABSTRACTION Provider, Abstract 01/03/2025 Results Follow-Up [facility] - [address] [place] [address] [facility] [address] [address] [place] [address] Moni Nowak APRN-PATTERN AND CHAIN MAKER COMPREHENSIVE METABOLIC PANEL, LIPID RFLX 01/02/2025 Orders Only [facility] - [address] [place] [phone] [facility] [address] [place] [address] Wilbert Barksdale MD Mixed hyperlipidemia; Encounter for long-term (current) use of medications; Paroxysmal atrial fibrillation (CMS/HCC) from Last 3 Months Family History Medical History Relation Name Comments Cancer Father Alzheimer's Disease Mother Relation Name Status Comments Father Mother Social History Tobacco Use Types Packs/Day Years Used Date Smoking Tobacco: Never Tobacco Cessation:Counseling Given: Not Answered Alcohol Use Standard Drinks/Week Comments Yes 0 (1 standard drink = 0.6 oz pur e alcohol) rarely Sex and Gender Information Value Date Recorded Sex Assigned at Not on file Legal Sex Male 4:32 PM CDT Gender Identity Not on file Sexual Orientation Not on file Last Filed Vital Signs Vital Sign Reading Time Taken Comments Blood Pressure 186/94 01/04/2025 10:42 AM CDT Pulse 64 01/04/2025 10:42 AM CDT Temperature - - Respiratory Rate - - Oxygen Saturation - - Inhaled Oxygen Concentration - - Weight 87.7 kg (193 lb 6.4 oz) 01/04/2025 10:42 AM CDT Height 180.3 cm (5' 11) 01/04/2025 10:42 AM CDT Body Mass Index 26.97 01/04/2025 10:42 AM CDT Plan of Treatment Upcoming Encounters Date Type Department Care Team (Late st Contact Info) Description 04/18/2025 11:15 AM CDT Office Visit [facility] - [address] [facility] [address] [address] [facility] [address] [address] [place] [address] [place] [address] [facility] [address] [place] [address] Health Maintenance Due Date Last Done Comments DTAP/TDAP/TD VACCINES (1 - Tdap) 1967 PNEUMOCOCCAL VACCINE 50+ YEARS (1 of 1 - PCV) 10/08/18 99 ZOSTER VACCINE (1 of 2) 1998 RSV VACCINE (60+ or ) (1 - 1-dose 75+ series) 2023 INFLUENZA VACCINE (#1) 2025 Procedures Procedure Name Priority Date/Time Associated Diagnosis Comments [place] ECG ROUTINE ECG W/LEAST 12 LDS W/I&R Routine 01/04/2025 10:45 AM CDT Mixed hyperlipidemia Paroxysmal atrial fibrillation (CMS/HCC) LIPID RFLX Routine 01/02/2025 9:23 AM CDT Mixed hyperlipidemia Encounter for long-term (current) use of medications Paroxysmal atrial fibrillation (CMS/HCC) COMPREHENSIVE METABOLIC PANEL Routine 01/02/2025 9:23 AM CDT Mixed hyperlipidemia Encounter for long-term (current) use of medications Paroxysmal atrial fibrillation (CMS/HCC) from Last 3 Months Results * [place] ECG ROUTINE ECG W/LEAST 12 LDS W/I&R (01/04/2025 10:45 AM CDT) Narrative [facility] [address] [facility] - 01/04/2025 10:45 AM CDT Wilbert Barksdale MD 01/04/2025 2:56 PM EKG Date/Time: 01/04/2025 10:45 AM Performed by: Wilbert Barksdale MD Authorized by: Wilbert Barksdale MD Rhythm: sinus rhythm Clinical impression: normal ECG Wilbert Barksdale MD ECG ORDERABLES Edite d Result - Final [facility] [address] [facility]# [id number] [address] [address] * LIPID RFLX (01/02/2025 9:23 AM CDT) Blood 01/02/2025 9:23 AM CDT Wilbret Barksdale MD CHEMISTRY ORDERABLES Final Result Performing Organization Address [facility] Co de Phone Number [facility] [phone] * COMPREHENSIVE METABOLIC PANEL (01/02/2025 9:23 AM CDT) Blood 01/02/2025 9:23 AM CDT Wilbert Barksdale MD CHEMISTRY ORDERABLES Final Result Performing Organization Address [facility] Co de Phone Number [facility] [phone] from Last [address] [employer] [address] [facility] Care Teams Residential Aide Relationship Specialty Start Date End Date Shiraz Fox DO [address] [facility] [address] [place] [id number] PCP - General Internal Medicine 03/08/19
--- OUTSIDE RECORDS SUMMARY | 2025-03-30 08:34 | XMS_ITS | Encounter Summary ---
Author Organization [facility] Health Address [address] [facility] [place] [address] Care Team Providers Care Communication Consultant Name Role Phone AgathachinaShiraz graff DO Primary Care Provider [phone] Encounter Details Date Type Department Care Team (Late st Contact Info) Description 02/18/2018 Lab Requisition [facility] Care DermPath Lab [address] [facility], [place] [address] Hector Cisneros MD [address] [place] [address] Social History Tobacco Use Types Packs/Day Years Used Date Smoking Tobacco: Never Smokeless Tobacco: Never Alcohol Use Standard Drinks/Week Comments Yes 0 (1 standard drink = 0.6 oz pur e alcohol) Sex and Gender Information Value Date Recorded Sex Assigned at Not on file 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 Gender Identity Not on file Sexual Orientation Not on file documented as of this encounter Plan of Treatment Not on file documented as of this encounter Procedures Procedure Name Priority Date/Time Associated Diagnosis Comments DERMATOPATHOLOGY Routine 02/16/2018 12:0 0 AM CDT documented in this encounter Results * DERMATOPATHOLOGY (02/16/2018 12:00 AM CDT) Case Report Dermatopathology Report Case: [id number] Authorizing Provider: Hector Cisneros MD Collected: 02/16/2018 12:00 AM Pathologist: Alexia Dent MD Received: 02/18/2018 12:22 PM Specimen: Skin, left mid back 8 2:00 PM CDT DERMATOPATHOLOGY LABORATORY Final Diagnosis Specimen A. 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 8 2:00 PM CDT DERMATOPATHOLOGY LABORATORY Gross Description Specimen A: Received is one formalin filled container labeled with the patient's name and designated left mid back. The specimen consists of a shave biopsy measuring [id number]. Jar 0. 8 2:00 PM CDT DERMATOPATHOLOGY LABORATORY Microscopic Description Specimen A. SKIN, left mid back: Sections show nests of cells with pale cytoplasm and thin strands of relatively normal keratinocytes intervening. There is overlying parakeratosis. 8 2:00 PM CDT DERMATOPATHOLOGY LABORATORY Disclaimer An external and internal positive and negative controls are appropriate for the histochemical, immunohistochemical and immunofluorescence stain(s) in this case (if any), except where stated explicitly. The performance characteristics of the stain(s) cited in this report were developed and its performance characteristic determined by the Dermatopathology Laboratory at [facility]. These tests need not be, and therefore are not, approved by the [place] Food and Drug Administration. The tests are used for clinical purposes. Billing Codes Specimen Charges Stain Charges 40788 1 8 2:00 PM CDT DERMATOPATHOLOGY LABORATORY Embedded Images 8 2:00 PM CDT DERMATOPATHOLOGY LABORATORY Pathology/Cytolog y TISSUE SPECIMEN FROM SKIN / Unknown 02/16/2018 02/18/2018 12:22 PM CDT us Hector Cisneros MD LAB - PATHOLOGY/CYTOLOGY ORD ERABLES Final Result DERMATOPATHOLOGY LABORATORY [facility] - Department of Dermatology [address] [facility], 5th [place] [address], [facility] [phone] documented in this encounter Visit Diagnoses Not on filedocumented in this encounter Care Teams Communication Consultant Relationship Specialty Start Date End Date hSiraz Fox DO PCP - General 12/15/13 documented as of this encounter
--- OUTSIDE RECORDS SUMMARY | 2025-03-30 08:34 | XMS_ITS | Encounter Summary ---
Author Organization [facility] Address [address] [facility] [address] [place] [address] Care Team Providers Care Squad Boss Name Role Phone Shiraz Fox DO Primary Care Provider [phone] Shiraz Fox DO Primary Care Provider [phone] Brenda Dukes MD Unavailable [phone] Encounter Details Date Type Department Care Team (Late st Contact Info) Description 09/10/2016 Orders Only [facility] ProviderNat MD [address] [place] [address] Social History Tobacco Use Types Packs/Day Years Used Date Smoking Tobacco: Never Alcohol Use Standard Drinks/Week Comments Yes 0 (1 standard drink = 0.6 oz pur e alcohol) Sex and Gender Information Value Date Recorded Sex Assigned at Not on file Legal Sex Male 10:56 AM LENS CUTTER Gender Identity Not on file Sexual Orientation Not on file documented as of this encounter Plan of Treatment Not on file documented as of this encounter Procedures Procedure Name Priority Date/Time Associated Diagnosis Comments CARDIOLOGY REPORT 09/10/2016 documented in this encounter Results * CARDIOLOGY REPORT (09/10/2016) Anatomical Region Laterality Modality Other Narrative 09/10/2016 Ordered by an unspecified provider. Historical Provider [facility] JOSE L CR Final Result documented in this encounter Visit Diagnoses Not on filedocumented in this encounter Care Teams Squad Boss Relationship Specialty Start Date End Date Shiraz Fox DO PCP - General 11/14/16 Shiraz Fox DO PCP - General 08/31/15 11/13/16 Brenda Dukes MD [address] [facility] [address] [place] [address] Slotter Operator Helper Cardiology 10/31/20 documented as of this encounter
== END 2025-03-30 08:28 | disposition home or self-care (01) ==
PROVIDERS: PCP Internal Medicine; Visit Provider Urology
DX: R31.9 Hematuria, unspecified (principal)
CPT/HCPCS: 74178; Q9967